=== PATIENT | male | born 1970 | race Caucasian/White ===

== ENCOUNTER 2020-02-26 13:21 | Emergency (ER) | payer SELFPAY ==
[2020-02-26] MEDS ORDERED: KETOROLAC 30 MG/ML INJ ONE (14:30)
[2020-02-26] MEDS ORDERED: NA CHLORIDE 0.9% 1,000 ML ONE (14:31)
[2020-02-26 14:32] LABS: Absolute Lymphocytes (CBC) 2.2 K/uL (0.7-4.9); Basophils % 0.4 % (0-1.3); Hematocrit 44.5 % (39.6-49.0); Lymphocytes % 28.3 % (15.3-44.8); MPV 7.6 fL (7.6-11.3); RBC Red Blood Cell Count 4.73 M/uL (4.33-5.43)
[2020-02-26 14:43] LABS: ALT/SGPT 26 U/L (12-78); AST/SGOT 13 U/L (15-37); Albumin 3.5 g/dL (3.4-5.0); Alkaline Phosphatase 85 U/L (45-117); BUN Blood Urea Nitrogen 10 mg/dL (7-18); Bicarbonate 27 mmol/L (21-32); Bilirubin Direct 0.2 mg/dL (0-0.2); Bilirubin Total 0.8 mg/dL (0.2-1.0); Glucose Level 92 mg/dL (74-106); Lipase 188 U/L (73-393); Potassium 4.2 mmol/L (3.5-5.1); Protein, Total 7.3 g/dL (6.4-8.2); Sodium Level 140 mmol/L (136-145)
--- NOTE | 2020-02-26 15:04 | RAD REPORT ---
EXAM DESCRIPTION: US - Scrotum Testicles - 02/26/2020 2:50 pm CLINICAL HISTORY: right testicle pain COMPARISON: No comparisons FINDINGS: No focal mass lesion identified in either testicle. Blood flow is demonstrated in both salina ticles. Blood flow does appear decreased relative to the left. The left-side is not hyperemic. No epi didymis enlargement or hyperemia identifiable. Increased vascularity is seen in the right groin tissu es without clearly defined varicocele. No hydrocele. No hernia identifiable. IMPRESSION: Normal blood flow seen in the left testicle. Right testicle shows a slightly decreased b lood flow pattern. Arterial and venous flow was demonstrated within the right testicle. No testicular mass. No epididymal mass or hyperemia.
[2020-02-26 15:28] LABS: Urine Mucus 1+ /HPF (NONE SEEN); Urine RBC NONE SEEN /HPF (NONE SEEN)
[2020-02-26 15:29] LABS: Urine Bacteria <20 /HPF (NONE SEEN); Urine Culture Reflex Order NOT NEEDED
[2020-02-26 15:29] LABS: Urine Blood NEGATIVE (NEG); Urine Glucose NEGATIVE (NEG); Urine Protein NEGATIVE (NEG); Urine Specific Gravity 1.025 (1.005-1.030); Urine pH 5.5 (5.0-7.0)
--- NOTE | 2020-02-26 16:14 | RAD REPORT ---
EXAM DESCRIPTION: CT - Abdomen Pelvis W Contrast - 02/26/2020 4:03 pm CLINICAL HISTORY: RLQ abdomen pain COMPARISON: None TECHNIQUE: Biphasic, helical CT imaging of the abdomen and pelvis was performed following 100 ml non -ionic IV contrast. Oral contrast was administered. All CT scans are performed using dose optimization technique as appropriate and may include automated exposure control or mA/KV adjustment according to patient size. FINDINGS: A 5 millimeter noncalcified nodule is present posterior gutter on the left. No specific fo llow-up recommendations for nodule of this size. No pericardial thickening or effusion. The liver, spleen, and pancreas show no suspicious findings. Gallbladder and biliary tree are also wi thout suspicious finding. Symmetric renal function is seen with no hydronephrosis or suspicious renal mass. No pyelonephritis o r acute parenchymal process. No bladder abnormalities. No adrenal abnormalities. No dilated bowel loops or bowel wall thickening. Appendix is identified and normal. Sigmoid colon is redundant and contains moderate stool volume. No free air, free fluid or inflammatory stranding. No mass or bulky lymphadenopathy. Small to moderate right-side and small left-sided inguinal hernias are present. No bowel involvement. Minimal umbilical hernia present. No suspicious bony findings. IMPRESSION: No appendicitis, colitis or other acute GI finding. Patient has no surgically emergent f inding. Bilateral fat only inguinal hernias, right greater than left. No pyelonephritis, cystitis or other acute finding seen.
--- NOTE | 2020-02-26 17:00 | EDPHYS ---
Physician Documentation [facility] Name: Beau Razo Age: 49 yrs Sex: Male : 1970 Arrival Date: 02/26/2020 Time: 13:24 Bed 13 Private MD: ED Physician Lc Walton HPI: 02/25 14:05 This 49 yrs old Male presents to ER via Ambulatory with complaints of cp Abdominal Pain. 14:05 The patient presents with abdominal pain in the lower abdomen. Onset: The cp symptoms/episode began/occurred 2 day(s) ago. 14:05 The symptoms do not radiate. Associated signs and symptoms: Pertinent positives: cp testicular pain, Pertinent negatives: nausea and vomiting, blood in stools, constipation, diarrhea, dysuria, fever, headache, shortness of breath. The symptoms are described as waxing/waning. Modifying factors: the symptoms are aggravated by movement, walking. 14:05 Severity of pain: in the emergency department the pain is unchanged despite home cp interventions. Historical: - Allergies: 13:34 No Known Allergies; em - Home Meds: 13:34 None [Active]; em - PMHx: 13:34 "ruptured disk"; em - PSHx: 13:34 None; em - Immunization history:: Adult Immunizations up to date. - Social history:: Smoking status: Patient reports the use of cigarette tobacco products, smokes one pack cigarettes per day. ROS: 14:15 Constitutional: Negative for body aches, chills, fever, poor PO intake. cp 14:15 Eyes: Negative for injury, pain, redness, and discharge. cp 14:15 ENT: Negative for ear pain, sore throat, difficulty swallowing, difficulty handling secretions. 14:15 Cardiovascular: Negative for chest pain, edema, palpitations. 14:15 Respiratory: Negative for cough, shortness of breath, wheezing. 14:15 Abdomen/GI: Positive for abdominal pain, of the suprapubic area and lower abdomen, Negative for nausea, vomiting, and diarrhea, constipation. 14:15 Back: Negative for radiated pain. 14:15 : Positive for testicular pain Negative for urinary symptoms, penile pain. 14:15 Skin: Negative for cellulitis, rash. 14:15 Neuro: Negative for altered mental status, headache, numbness, weakness. 14:15 All other systems are negative. Exam: 14:20 Constitutional: The patient appears in no acute distress, alert, awake, cp non-diaphoretic, non-toxic, well developed, well nourished. 14:20 Head/Face: Normocephalic, atraumatic. cp 14:20 Eyes: Periorbital structures: appear normal, Conjunctiva: normal, no exudate, no injection, Sclera: no appreciated abnormality, Lids and lashes: appear normal, bilaterally. 14:20 ENT: External ear(s): are unremarkable, Nose: is normal, Mouth: Lips: moist, Oral mucosa: moist, Posterior pharynx: is normal, airway is patent, no erythema, no exudate. 14:20 Chest/axilla: Inspection: normal, Palpation: is normal, no crepitus, no tenderness. 14:20 Cardiovascular: Rate: normal, Rhythm: regular, Edema: is not appreciated, JVD: is not appreciated. 14:20 Respiratory: the patient does not display signs of respiratory distress, Respirations: normal, no use of accessory muscles, no retractions, labored breathing, is not present, Breath sounds: are clear throughout, no decreased breath sounds, no stridor, no wheezing. 14:20 Abdomen/GI: Inspection: abdomen appears normal, Bowel sounds: active, all quadrants, Palpation: soft, in all quadrants, moderate abdominal tenderness, in the suprapubic area and right lower quadrant, rebound tenderness, is not appreciated, voluntary guarding, is elicited in the suprapubic area and right lower quadrant, Hernia: noted in the right inguinal area, incarceration, is not appreciated, tenderness, that is moderate. 14:20 : Male external genitalia: erythema, is absent, penile discharge, is absent, swelling, is noted in the right inguinal area, that is mild, tenderness, of the right testicle is noted, is palpated in the right inguinal area, of the epididymis area, that is moderate, Sexual behavior: the patient is sexually active, and reports a single partner. 14:20 Skin: cellulitis, is not appreciated, no rash present. 14:20 Neuro: Orientation: to person, place \\T\\ time. Mentation: is normal, Motor: moves all fours, strength is normal, Sensation: no obvious gross deficits, Gait: is steady. Vital Signs: 13:31 BP 117 / 89; Pulse 91; Resp 18; Temp 97.7; Pulse Ox 100% on R/A; Weight 68.04 kg; em Height 5 ft. 10 in. (177.80 cm); Pain 4/10; 15:42 BP 122 / 85; Pulse 81; Resp 18; Pulse Ox 98% on R/A; ph 17:00 BP 118 / 76; Pulse 71; Resp 18; Temp 97.4; Pulse Ox 99% on R/A; ph 13:31 Body Mass Index 21.52 (68.04 kg, 177.80 cm) em MDM: 13:43 Patient medically screened. cp 14:00 Differential diagnosis: Testicular Torsion, Ureterolithiasis, urinary tract infection, cp incarcerated hernia, appendicitis. 16:45 ED course: Spoke with DR Webb, urologist with [facility], concerning findings cp of testicular US that showed decreased blood flow to right testicle when compared to left. Believes findings more concerning for epididymitis vs testicular torsion. Wants patient to be treated with oral antibiotics and patient can f/u tomorrow in [facility] with Stephy Coleman. 17:00 Data reviewed: vital signs, nurses notes, lab test result(s), radiologic studies, CT cp scan, ultrasound, I have discussed the patient's presentation/case with the attending Emergency Department Physician; and as a result, I will discharge patient. 17:00 Counseling: I had a detailed discussion with the patient and/or guardian regarding: the cp historical points, exam findings, and any diagnostic results supporting the discharge/admit diagnosis, lab results, radiology results, the need for outpatient follow up, a general surgeon, a urologist, to return to the emergency department if symptoms worsen or persist or if there are any questions or concerns that arise at home. Response to treatment: the patient's symptoms have markedly improved after treatment, Pain improved. Will discharge to home for continued monitoring with instructions for f/u and to return to ED worsening pain/symptoms, and as a result, I will discharge patient. 02/25 13:59 Order name: Basic Metabolic Panel; Complete Time: 15:33 cp 02/25 13:59 Order name: CBC with Diff; Complete Time: 15:33 cp 02/25 13:59 Order name: Hepatic Function; Complete Time: 15:33 cp 02/25 15:34 Interpretation: Normal except: AST 13; GLOB 3.8; A/G 0.9. cp 02/25 13:59 Order name: Lipase; Complete Time: 15:33 cp 02/25 13:59 Order name: Urine Microscopic Only; Complete Time: 15:33 cp 02/25 15:34 Interpretation: Reviewed. 02/25 14:39 Order name: Urine Dipstick--Ancillary (enter results); Complete Time: 15:33 em1 02/25 13:59 Order name: IV Saline Lock; Complete Time: 14:38 cp 02/25 13:59 Order name: Labs collected and sent; Complete Time: 14:38 cp 02/25 13:59 Order name: US Scrotum Testicles; Complete Time: 15:33 cp 02/25 13:59 Order name: CT Abd/Pelvis - PO and IV Contrast; Complete Time: 16:20 cp 02/25 13:59 Order name: Urine Dipstick-Ancillary (obtain specimen); Complete Time: 14:37 cp Administered Medications: 15:15 Drug: TORadol - Ketorolac 15 mg Route: IVP; Site: right antecubital; ph 15:30 Follow up: Response: No adverse reaction ph 15:15 Drug: NS 0.9% 1000 ml Route: IV; Rate: 1 bolus; Site: right antecubital; ph 17:00 Follow up: Response: No adverse reaction; IV Status: Completed infusion; IV Intake: ph 1000ml 17:00 Drug: Hydrocodone-Acetaminophen (7.5 mg-500 mg) 1 tabs Route: PO; ph 17:15 Follow up: Response: No adverse reaction ph 17:00 Drug: Rocephin - (cefTRIAXone) 1 grams Route: IVPB; Infused Over: 30 mins; Site: right ph antecubital; 17:15 Follow up: Response: No adverse reaction; IV Status: Completed infusion ph Disposition: 02/26 05:37 Co-signature as Attending Physician, Lc Walton MD I agree with the assessment and kdr plan of care. Disposition: 02/26/20 17:00 Discharged to Home. Impression: Bilateral inguinal hernia, without obstruction or gangrene, Epididymitis - right. - Condition is Stable. - Discharge Instructions: Epididymitis, Inguinal Hernia, Adult. - Prescriptions for Bactrim DS 800- 160 mg Oral Tablet - take 1 tablet by ORAL route every 12 hours for 10 days; 20 tablet. Tramadol 50 mg Oral Tablet - take 1 tablet by ORAL route every 8 hours as needed; 20 tablet. - Medication Reconciliation Form, Thank You Letter, Antibiotic Education, Prescription Opioid Use form. - Follow up: Private Physician; When: 1-2 days, Stephy Coleman \\T\\[phone]; Reason: Recheck today's complaints. Follow up: Ludwig Lopez MD; When: 2 - 3 days; Reason: inguinal hernias. - Problem is new. - Symptoms have improved. Signatures: Dispatcher [employer] EDMS Lc Walton MD MD kdr Frederick Mcleod RN RN em Smirch, Shelby, RN RN ss Kathy Gutierrez RN RN ph Page, NAPOLEON Underwood cp Corrections: (The following items were deleted from the chart) 02/25 17: 17:00 02/26/2020 17:00 Discharged to Home. Impression: Bilateral inguinal hernia, cp without obstruction or gangrene. Condition is Stable. Forms are Medication Reconciliation Form, Thank You Letter, Antibiotic Education, Prescription Opioid Use. Follow up: Private Physician; When: 1-2 days, Stephy Coleman \\T\\[phone]; Reason: Recheck today's complaints. Problem is new. Symptoms have improved. cp 17:03 17:02/26/2020 17:00 Discharged to Home. Impression: Bilateral inguinal hernia, cp without obstruction or gangrene; Epididymitis - right. Condition is Stable. Discharge Instructions: Epididymitis, Inguinal Hernia, Adult. Prescriptions for Bactrim DS 800-160 mg Oral Tablet - take 1 tablet by ORAL route every 12 hours for 10 days; 20 tablet. and Forms are Medication Reconciliation Form, Thank You Letter, Antibiotic Education, Prescription Opioid Use. Follow up: Private Physician; When: 1-2 days, Stephy Jared \\T\\[phone]; Reason: Recheck today's complaints. Problem is new. Symptoms have improved. cp 17:30 17:03 02/26/2020 17:00 Discharged to Home. Impression: Bilateral inguinal hernia, ss without obstruction or gangrene; Epididymitis - right. Condition is Stable. Discharge Instructions: Epididymitis, Inguinal Hernia, Adult. Prescriptions for Bactrim DS 800-160 mg Oral Tablet - take 1 tablet by ORAL route every 12 hours for 10 days; 20 tablet, Tramadol 50 mg Oral Tablet - take 1 tablet by ORAL route every 8 hours as needed; 20 tablet. and Forms are Medication Reconciliation Form, Thank You Letter, Antibiotic Education, Prescription Opioid Use. Follow up: Private Physician; When: 1-2 days, Stephy Coleman \\T\\[phone]; Reason: Recheck today's complaints. Follow up: Ludwig Lopez; When: 2 - 3 days; Reason: inguinal hernias. Problem is new. Symptoms have improved. cp
--- NOTE | 2020-02-26 17:00 | ER ---
Nurse's Notes [facility] Name: Beau Razo Age: 49 yrs Sex: Male : 1970 Arrival Date: 02/26/2020 Time: 13:24 Bed 13 Private MD: Diagnosis: Bilateral inguinal hernia, without obstruction or gangrene;Epididymitis-right Presentation: 02/25 13:31 Chief complaint: Patient states: suprapubic pain that started 2 days ago, denies N/V/D em or fever, denies burning with urination or discharge. Coronavirus screen: Proceed with normal triage. Patient denies a cough. Patient denies shortness of breath or difficulty breathing. Patient denies measured and/or subjective temperature greater than 100.4F prior to today's visit. Patient denies travel on a cruise ship or to a country the [facility] currently lists as an affected area. Patient denies contact with known and/or suspected case of COVID-19. Ebola Screen: Patient negative for fever greater than or equal to 101.5 degrees Fahrenheit, and additional compatible Ebola Virus Disease symptoms Patient denies exposure to infectious person. Patient denies travel to an Ebola-affected area in the 21 days before illness onset. No symptoms or risks identified at this time. Initial Sepsis Screen: Does the patient meet any 2 criteria? HR > 90 bpm. No. Patient's initial sepsis screen is negative. Does the patient have a suspected source of infection? No. Patient's initial sepsis screen is negative. Risk Assessment: Do you want to hurt yourself or someone else? Patient reports no desire to harm self or others. Onset of symptoms was February 24, 2020. 13:31 Method Of Arrival: Ambulatory em 13:31 Acuity: GAIL 3 em Historical: - Allergies: 13:34 No Known Allergies; em - Home Meds: 13:34 None [Active]; em - PMHx: 13:34 "ruptured disk"; em - PSHx: 13:34 None; em - Immunization history:: Adult Immunizations up to date. - Social history:: Smoking status: Patient reports the use of cigarette tobacco products, smokes one pack cigarettes per day. Screenin:55 Abuse screen: Denies threats or abuse. Denies injuries from another. Nutritional ph screening: No deficits noted. Tuberculosis screening: No symptoms or risk factors identified. Fall Risk None identified. Assessment: 13:39 General: Appears in no apparent distress. comfortable, Behavior is calm, cooperative, ph appropriate for age, Denies fever. Pain: Complains of pain in suprapubic area. 13:54 Neuro: Level of Consciousness is awake, alert, obeys commands, Oriented to person, ph place, time, situation. Cardiovascular: Capillary refill < 3 seconds in bilateral fingers Patient's skin is warm and dry. Respiratory: Airway is patent Respiratory effort is even, unlabored. GI: Abdomen is non-distended, Bowel sounds present X 4 quads. Reports lower abdominal pain, Patient currently denies diarrhea, nausea, vomiting. : Reports pain in suprapubic area Denies burning with urination, urinary frequency. Derm: Skin is intact, is healthy with good turgor, Skin is pink, warm \\T\\ dry. Musculoskeletal: Circulation, motion, and sensation intact. Range of motion: intact in all extremities. 14:20 Reassessment: Patient appears in no apparent distress at this time. Patient and/or ph family updated on plan of care and expected duration. Pain level reassessed. Patient is alert, oriented x 3, equal unlabored respirations, skin warm/dry/pink. Pt completed PO contrast. 15:30 Reassessment: Patient appears in no apparent distress at this time. Patient and/or ph family updated on plan of care and expected duration. Pain level reassessed. Patient is alert, oriented x 3, equal unlabored respirations, skin warm/dry/pink. 16:30 Reassessment: Patient appears in no apparent distress at this time. Patient and/or ph family updated on plan of care and expected duration. Pain level reassessed. Patient is alert, oriented x 3, equal unlabored respirations, skin warm/dry/pink. Vital Signs: 13:31 BP 117 / 89; Pulse 91; Resp 18; Temp 97.7; Pulse Ox 100% on R/A; Weight 68.04 kg; em Height 5 ft. 10 in. (177.80 cm); Pain 4/10; 15:42 BP 122 / 85; Pulse 81; Resp 18; Pulse Ox 98% on R/A; ph 17:00 BP 118 / 76; Pulse 71; Resp 18; Temp 97.4; Pulse Ox 99% on R/A; ph 13:31 Body Mass Index 21.52 (68.04 kg, 177.80 cm) em ED Course: 13:24 Patient arrived in ED. ag5 13:34 Triage completed. em 13:34 Arm band placed on. em 13:38 Kathy Gutierrez, RN is Primary Nurse. ph 13:42 Kj Saleh PA is PHCP. cp 13:42 Lc Walton MD is Attending Physician. cp 13:55 Patient has correct armband on for positive identification. Bed in low position. Call ph light in reach. Side rails up X 1. Pulse ox on. NIBP on. Door closed. Noise minimized. Warm blanket given. 14:25 Initial lab(s) drawn, by me, sent to lab. Inserted saline lock: 20 gauge in right ph antecubital area, using aseptic technique. Blood collected. 14:45 US Scrotum Testicles In Process Unspecified. EDMS 16:04 CT Abd/Pelvis - PO and IV Contrast In Process Unspecified. EDMS 17:02 Ludwig Lopez MD is Referral Physician. cp 17:30 No provider procedures requiring assistance completed. IV discontinued, intact, ph bleeding controlled, No redness/swelling at site. Pressure dressing applied. Administered Medications: 15:15 Drug: TORadol - Ketorolac 15 mg Route: IVP; Site: right antecubital; ph 15:30 Follow up: Response: No adverse reaction ph 15:15 Drug: NS 0.9% 1000 ml Route: IV; Rate: 1 bolus; Site: right antecubital; ph 17:00 Follow up: Response: No adverse reaction; IV Status: Completed infusion; IV Intake: ph 1000ml 17:00 Drug: Hydrocodone-Acetaminophen (7.5 mg-500 mg) 1 tabs Route: PO; ph 17:15 Follow up: Response: No adverse reaction ph 17:00 Drug: Rocephin - (cefTRIAXone) 1 grams Route: IVPB; Infused Over: 30 mins; Site: right ph antecubital; 17:15 Follow up: Response: No adverse reaction; IV Status: Completed infusion ph Intake: 17:00 IV: 1000ml; Total: 1000ml. ph Outcome: 17:00 Discharge ordered by . cp 17:30 Patient left the ED. ss 17:30 Discharged to home ambulatory. ph 17:30 Condition: good 17:30 Discharge instructions given to patient, Instructed on discharge instructions, follow up and referral plans. medication usage, Demonstrated understanding of instructions, follow-up care, medications, Prescriptions given X 2. Signatures: Dispatcher [employer] Frederick Tamez RN RN em Smirch, Shelby, RN RN ss Hall, Patricia, RN RN ph Kj Saleh PA PA cp Gaskin, Ajare ag5 Corrections: (The following items were deleted from the chart) 13:55 13:39 Pain: Complains of pain in suprapubic area ph ph
[2020-02-26] MEDS ORDERED: HYDROCODONE/APAP 7.5/325 MG TAB ONE (17:08)
[2020-02-26] MEDS ORDERED: CEFTRIAXONE/SWI 1gm 1 GM/10 ML SYR ONE (17:08)
[2020-02-26 17:38] VITALS: TEMP 97.7
[2020-02-26 17:40] VITALS: BP 122/85; O2SAT 98
== END 2020-02-26 17:30 | disposition home or self-care (01) ==
LOC: ER 13:21
DX: K40.20 Bilateral inguinal hernia, without obstruction or gangrene, not specified as recurrent (principal); N45.1 Epididymitis; F17.210 Nicotine dependence, cigarettes, uncomplicated
CPT/HCPCS: 36415; 74177; 76870; 80048; 80076; 81003; 81015; 83690; 85025; 96361; 96374; 96375; 99284; J0696; J7030; Q9967

== ENCOUNTER 2024-08-20 14:32 | Emergency (ER) | payer SELFPAY ==
--- OUTSIDE RECORDS SUMMARY | 2024-08-20 14:34 | XMS REPORT | Continuity of Care Document ---
Author Name Unknown Address [address] [place] [address] [address]. [address] [place] [id number] [facility] thconnect Address [address] [place] [address] [address]. [address] [place] [address] Care Team Providers Care Technician Terminal And Repeater Name Role Phone Unavailable Unavailable Unavailable Encounters Start Date/Time End Date/Time Encounter Type Admission Type Attending Clinicians [facility] Facility Care Department Encounter ID Source 2023-02-09 11:02:34 2023-02-09 11:02:[address] [facility] [id number] Chris Melo 2023-01-09 14:23:55 2023-01-09 14:23:[address] [facility] [id number] Chris Melo Results Test Description Test Time Test Comments Results Result Co mments Source
--- NOTE | 2024-08-20 15:11 | ER ---
Nurse's Notes [facility] Name: Beau Razo Age: 53 yrs Sex: Male : 1970 Arrival Date: 08/20/2024 Time: 14:32 Bed IW3 [facility] MD: Diagnosis: Polyarthritis, unspecified Presentation: 08/20 15:03 Chief complaint: Pain all over, worse in the hands x 5 days. Coronavirus screen: At this time, the client does not indicate any symptoms associated with coronavirus-19. Ebola Screen: No symptoms or risks identified at this time. Initial Sepsis Screen: Does the patient meet any 2 criteria? No. Patient's initial sepsis screen is negative. Does the patient have a suspected source of infection? No. Patient's initial sepsis screen is negative. Risk Assessment: Do you want to hurt yourself or someone else? Patient reports no desire to harm self or others. Onset of symptoms was August 14, 2024. 15:03 Method Of Arrival: Ambulatory hb 15:05 Acuity: GAIL 4 hb Historical: - Allergies: 15:04 No Known Allergies; hb - Home Meds: 15:04 None [Active]; hb - PMHx: 15:04 None; hb - PSHx: 15:04 None; hb - Immunization history:: Adult Immunizations up to date. - Infectious Disease History:: Denies. - Social history:: Smoking status: Patient reports the use of cigarette tobacco products. Vital Signs: 15:05 BP 112 / 73; Pulse 77; Resp 16; Temp 97; Pulse Ox 100% ; hb ED Course: 14:34 Patient arrived in ED. im 14:34 Bria Tena PA-C is PHCP. sb4 14:35 Kj Mckeon MD is Attending Physician. sb4 15:05 Arm band placed on. hb 15:08 Triage completed. hb Administered Medications: 16:17 Drug: Ketorolac IM 30 mg IM once Route: IM; Site: right deltoid; hb 16:18 Follow up: Response: Medication administered at discharge. hb 16:17 Drug: Dexamethasone IM 10 mg IM once Route: IM; Site: left deltoid; hb 16:17 Follow up: Response: Medication administered at discharge. hb 16:17 Drug: Cyclobenzaprine PO 10 mg PO once Route: PO; hb 16:18 Follow up: Response: Medication administered at discharge. hb Outcome: 15:10 Discharge ordered by MD. mary 16:18 Patient left the ED. hb Signatures: Marlena Mendoza RN RN Bria De PA-C PA-C sb4 Mendoza, Itzel Corrections: (The following items were deleted from the chart) 15:04 15:02 Chief complaint: hb hb 15:08 15:03 Chief complaint: Bilateral hand pain x 2 days. hb hb 15:08 15:03 Onset of symptoms was August 19, 2024 hb hb
--- NOTE | 2024-08-20 15:11 | EDPHYS ---
Physician Documentation [facility] Name: Beau Razo Age: 53 yrs Sex: Male : 1970 Arrival Date: 08/20/2024 Time: 14:32 Bed IW3 Private MD: ED Physician Kj Mckeon HPI: 08/20 15:12 This 53 yrs old Male presents to ER via Ambulatory with complaints of Pain All Over. sb4 15:12 joint pain x several days- bilateral wrists, hips, and knees. has taken ibuprofen sb4 without significant relief. denies any injury. denies any medical history. Historical: - Allergies: 15:04 No Known Allergies; hb - Home Meds: 15:04 None [Active]; hb - PMHx: 15:04 None; hb - PSHx: 15:04 None; hb - Immunization history:: Adult Immunizations up to date. - Infectious Disease History:: Denies. - Social history:: Smoking status: Patient reports the use of cigarette tobacco products. ROS: 15:12 Constitutional: Negative for fever, chills, and weight loss, sb4 15:12 MS/extremity: Positive for decreased range of motion, pain, tenderness, 15:12 All other systems are negative, Exam: 15:12 Constitutional: This is a well developed, well nourished patient who is awake, alert, sb4 and in no acute distress. Head/Face: Normocephalic, atraumatic. Eyes: Extra-ocular motions intact. Periorbital areas with no swelling, redness, or edema. ENT: Mucous membranes moist. 15:12 Skin: Warm, dry with normal turgor. Normal color with no rashes, no lesions, and no evidence of cellulitis. 15:12 Musculoskeletal/extremity: decreased strength right hand. no swelling, erythema, decreased ROM. 15:16 Special observations: sleeping in lobby, sb4 Vital Signs: 15:05 BP 112 / 73; Pulse 77; Resp 16; Temp 97; Pulse Ox 100% ; hb MDM: 15:10 Medical Screening Exam initiated sb4 15:16 Data reviewed: vital signs, nurses notes, and as a result, I will discharge patient. sb4 Counseling: I had a detailed discussion with the patient and/or guardian regarding the historical points, exam findings, and any diagnostic results supporting the discharge/admit diagnosis, the need for outpatient follow up, for definitive care, to return to the emergency department if symptoms worsen or persist or if there are any questions or concerns that arise at home. Administered Medications: 16:17 Drug: Ketorolac IM 30 mg IM once Route: IM; Site: right deltoid; hb 16:18 Follow up: Response: Medication administered at discharge. hb 16:17 Drug: Dexamethasone IM 10 mg IM once Route: IM; Site: left deltoid; hb 16:17 Follow up: Response: Medication administered at discharge. hb 16:17 Drug: Cyclobenzaprine PO 10 mg PO once Route: PO; hb 16:18 Follow up: Response: Medication administered at discharge. hb Disposition Summary: 08/20/24 15:10 Discharge Ordered Notes: Location: Home sb4 Problem: an ongoing problem sb4 Symptoms: have improved sb4 Condition: Stable sb4 Diagnosis - Polyarthritis, unspecified sb4 Followup: sb4 - With: Private Physician - When: As needed - Reason: Recheck today's complaints, Re-evaluation by your physician Discharge Instructions: - Discharge Summary Sheet sb4 - Arthritis, [id number] sb4 - Joint Pain, Bjhk-by-[id number] sb4 Forms: - Patient Portal Instructions sb4 - Leadership Thank You Letter sb4 Prescriptions: - Cyclobenzaprine 10 mg Oral Tablet - take 1 tablet ORAL route every 8 hours As needed; 30 tablet; Refills: 0, sb4 Product Selection Permitted - Prednisone 20 mg Oral Tablet - take 2 tablets ORAL route once daily for 5 days; 10 tablet; Refills: 0, Product sb4 Selection Permitted Addendum: 08/22/2024 12:40 Co-signature as Attending Physician, Kj Mckeon MD I agree with the assessment and c fowler plan of care. Signatures: Kj Mckeon MD MD cha Baxter, Heather, RN RN Bria De PA-C PA-C sb4
[2024-08-20] MEDS ORDERED: dexAMETHasone 10 MG/ML VIAL ONE (16:11)
[2024-08-20] MEDS ORDERED: KETOROLAC 30 MG/ML INJ ONE (16:11)
[2024-08-20] MEDS ORDERED: CYCLOBENZAPRINE 10 MG TAB ONE (16:12)
[2024-08-20 17:20] VITALS: BP 112/73; TEMP 97; O2SAT 100
== END 2024-08-20 16:18 | disposition home or self-care (01) ==
LOC: ER 14:32
DX: M13.0 Polyarthritis, unspecified (principal); F17.210 Nicotine dependence, cigarettes, uncomplicated
CPT/HCPCS: 96372; 99284; J1100

== ENCOUNTER 2024-11-06 09:30 | Emergency (ER) | payer OTHER ==
--- OUTSIDE RECORDS SUMMARY | 2024-11-06 09:32 | XMS REPORT | Continuity of Care Document ---
Author Name Unknown Address [address] [place] [address] [facility] Address [address] [place] [address] Care Team Providers Care Intermediate Project Manager Name Role Phone Unavailable Unavailable Unavailable Encounters Start Date/Time End Date/Time Encounter Type Admission Type Attending Clinicians [facility] Facility Care Department Encounter ID Source 2024-10-31 13:25:57 2024-10-31 13:25:57 Outpatient SFA SFA [id number] Chris Melo 2024-10-28 10:42:47 2024-10-28 10:42:47 Outpatient SFA SFA [id number] Chris Melo 2023-02-09 11:02:34 2023-02-09 11:02:34 Outpatient SFA SFA [id number] Chris Melo 2023-01-09 14:23:55 2023-01-09 14:23:55 Outpatient SFA SFA [id number] Chris Melo
[2024-11-06] MEDS ORDERED: MORPHINE 4 MG/ML SYR ONE (09:46)
[2024-11-06] MEDS ORDERED: NA CHLORIDE 0.9% 1,000 ML ONE (09:46)
[2024-11-06] MEDS ORDERED: ONDANSETRON 4 MG/2 ML VIAL ONE (09:46)
[2024-11-06] MEDS ORDERED: KETOROLAC 30 MG/ML INJ ONE (09:46)
[2024-11-06 10:14] LABS: Absolute Basophils 0.1 K/uL (0-0.5); Absolute Eosinophils 0.1 K/uL (0-0.5); Absolute Lymphocytes (CBC) 1.1 K/uL (0.7-4.9); Absolute Monocytes 0.5 K/uL (0.1-1.3); Absolute Neutrophil 15.6 K/uL (1.8-8.0); Basophils % 0.5 % (0-1.3); Eosinophils % 0.6 % (0-4.4); Hematocrit 36.3 % (39.6-49.0); Lymphocytes % 6.5 % (15.3-44.8); MCH 28.4 pg (27.0-35.0); MCHC 32.9 g/dL (32.0-36.0); MCV 86.1 fL (80-100); MPV 6.1 fL (7.6-11.3); Neutrophils % 89.4 % (41.7-73.7); Platelets 681 thou/uL (152-406); RBC Red Blood Cell Count 4.22 M/uL (4.33-5.43); Red Cell Distribution Width 14.8 % (12.1-15.2)
[2024-11-06 10:29] LABS: Albumin 1.9 g/dL (3.4-5.0); Albumin/Globulin Ratio 0.4 (1.1-1.8); Anion Gap 9.1 mEq/L (5.0-15.0); Bilirubin Total 0.3 mg/dL (0.2-1.0); Globulin 5.2 g/dL (2.3-3.5); Potassium 4.1 mEq/L (3.5-5.1); Protein, Total 7.1 g/dL (6.4-8.2)
[2024-11-06 10:38] LABS: Specific Gravity > 1.030 (1.005-1.030); Sqamous Epithelial None Seen /HPF (None Seen); Urine Bacteria <20 /HPF (<20); Urine Bilirubin NEGATIVE (Negative); Urine Blood Negative (Negative); Urine Clarity Clear (Clear); Urine Color Yellow (Yellow); Urine Culture Reflex Order NOT NEEDED; Urine Glucose NEGATIVE (Negative); Urine Ketones NEGATIVE (Negative); Urine Microscopic Reflex YN ORDER UMIC; Urine Mucus Slight /HPF (None Seen); Urine Nitrite NEGATIVE (Negative); Urine Protein TRACE (Negative); Urine RBC <5 /HPF (None Seen); Urine Urobilinogen 1+ (Normal); Urine WBC <5 /HPF (<5); Urine pH 5.5 (5.0-7.0)
[2024-11-06 10:48] LABS: Band Neutrophils 1 % (0-1); Differential Total Cells Count 100; Lymphocytes 10 % (15-42); Metamyelocytes 1 % (0-0); Monocytes 4 % (0-10); Segmented Neutrophils 84 % (40-80)
[2024-11-06 10:49] LABS: Blood Morphology Comment NOTED (NOT SEEN); Platelet Estimate INCR; Spherocyte 1+
--- NOTE | 2024-11-06 11:24 | RAD REPORT ---
EXAM: CT CHEST, ABDOMEN AND PELVIS WITH CONTRAST CLINICAL INDICATION: rlq TECHNIQUE: CT chest, abdomen and pelvis was performed, following the administration of contrast, as p er department protocol. Axial, sagittal and coronal reconstructions were obtained. One or more of the following dose reduction techniques were used: Automated exposure control, adjustment of the mA a nd/or kV according to patient size, and/or iterative reconstruction. Unless otherwise specified, incidental findings do not require dedicated imaging follow-up. COMPARISON: No prior exam. FINDINGS: LUNGS: There is a large mass lesion occupying the majority of the superior right hemithorax this hailey ures 16 x 15 x 13 cm. There is mild mass effect on the cardiomediastinal structures towards the left. Left lung is grossly clear. PLEURA: Trace right pleural fluid. MEDIASTINUM AND LYMPH NODES: There is evidence of enlarged mediastinal adenopathy, for example pretra cheal location measuring 15 mm. OSSEOUS STRUCTURES AND CHEST WALL: There are multiple lucent lesions seen in the axial skeleton, bony pelvis and sternum compatible with osseous metastatic disease. LIVER: Tiny indeterminate low-density hepatic lesions. No biliary dilatation. Grossly unremarkable ga llbladder. PANCREAS: No mass, ductal dilation, or kelly-pancreatic fluid. SPLEEN: Normal size. No focal lesion. ADRENALS: Normal; no mass. KIDNEYS: Normal size and contour. No hydronephrosis. URINARY BLADDER: Normal contour. GASTROINTESTINAL TRACT: No bowel obstruction, free air, significant free fluid or abscess. APPENDIX: Normal appendix. LYMPH NODES: No lymphadenopathy. MUSCULOSKELETAL: Mild central T12 compression fracture with mild vertebral body height loss likely pa thologic fracture. There is severe central canal stenosis at this level caused by posterior retropulsion and mass component. Mild paraspinal soft tissue thickening. IMPRESSION: Very large mass occupying the majority of the right upper hemithorax compatible with neoplasm as deta iled above. 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 C ord compression is suspected. The findings were communicated with Jonathan Aguayo at 11/06/2024 11:22 AM by telephone.
[2024-11-06] MEDS ORDERED: Levofloxacin 750mg IV 750 MG/150 ML BAG IV ONE (12:31)
--- NOTE | 2024-11-06 13:01 | EDPHYS ---
Physician Documentation [facility] Name: Beau Razo Age: 54 yrs Sex: Male : 1970 Arrival Date: 11/06/2024 Time: 09:30 Bed 2 Private MD: ED Physician Jonathan Aguayo HPI: 11/06 10:06 This 54 yrs old Male presents to ER via Ambulatory with complaints of Possible Kidney rt Stone. 10:06 Patient presents to the ED with a right lower quadrant pain radiating to the right rt flank, intermittently past 8 days. Reports nausea without vomiting. Denies dysuria, hematuria. Denies other acute complaints at this time, symptoms are moderate in severity, no other aggravating or alleviating factors.. Historical: - Allergies: :40 No Known Allergies; ll1 - PMHx: 09:40 Kidney stone; ll1 - PSHx: 09:40 None; ll1 - Immunization history:: Adult Immunizations up to date. - Infectious Disease History:: Denies. - Family history:: not pertinent. - Social history:: Smoking status: Patient denies any tobacco usage or history of. ROS: 10:06 Constitutional: Negative for fever, chills, and weight loss, Cardiovascular: Negative rt for chest pain, palpitations, and edema, Respiratory: Negative for shortness of breath, cough, wheezing, and pleuritic chest pain, MS/Extremity: Negative for injury and deformity, Skin: Negative for injury, rash, and discoloration, Neuro: Negative for headache, weakness, numbness, tingling, and seizure, 10:06 Abdomen/GI: Positive for abdominal pain, nausea, 10:06 Back: Positive for flank pain, Negative for injury or acute deformity, Exam: 10:06 Constitutional: This is a well developed, well nourished patient who is awake, alert, rt and in no acute distress. Head/Face: Normocephalic, atraumatic. Chest/axilla: Normal chest wall appearance and motion. Nontender with no deformity. No lesions are appreciated. Cardiovascular: Regular rate and rhythm with a normal S1 and S2. No gallops, murmurs, or rubs. Normal PMI, no JVD. No pulse deficits. Respiratory: Lungs have equal breath sounds bilaterally, clear to auscultation and percussion. No rales, rhonchi or wheezes noted. No increased work of breathing, no retractions or nasal flaring. Skin: Warm, dry with normal turgor. Normal color with no rashes, no lesions, and no evidence of cellulitis. MS/ Extremity: Pulses equal, no cyanosis. Neurovascular intact. Full, normal range of motion. 10:06 Abdomen/GI: Tenderness to the right lower quadrant, right flank without rebound, guarding, distention, Vital Signs: 09:41 BP 124 / 76; Pulse 94; Resp 17; Temp 97.7; Pulse Ox 99% on R/A; ll1 10:04 BP 107 / 68; Pulse 83; Resp 18; Pulse Ox 100% on R/A; Pain 8/10; ld1 10:53 BP 112 / 74; Pulse 77; Resp 18; Pulse Ox 98% on R/A; ld1 12:06 BP 104 / 65; Pulse 85; Resp 18; Pulse Ox 100% on R/A; ld1 13:06 BP 114 / 74; Pulse 81; Resp 18; Pulse Ox 100% on R/A; ld1 13:45 BP 113 / 70; Pulse 79; Resp 15; Pulse Ox 100% ; cm10 10:04 Pain Scale: Adult ld1 MDM: 09:36 Medical Screening Exam initiated rt 15:26 Differential Diagnosis Kidney stone, appendicitis, metastatic cancer. Data reviewed: rt vital signs, nurses notes, lab test result(s), EKG, radiologic studies. Consideration of Admission/Observation Escalation of care including admission/observation considered. Given large new lung mass with compression of the mediastinum, T12 compression fracture with retropulsion into the spinal cord, I strongly recommended that the patient be transferred to [facility] for further care. Patient states that he does not wish to go up there today, wishes to go tomorrow. I told him that this would be outside of the transfer process and that I recommended that we send him today. Patient refuses transfer at this time. I informed him of the risk of permanent neurologic disability to include paralysis. He understands his condition, verbalized understanding and has decision-making capacity. Return precautions were discussed.. I considered the following discharge prescriptions or medication management in the emergency department Medications were administered in the Emergency Department. See MAR. Independent interpretation of the following test(s) in the Emergency Department CT Scan: My interpretation is Large lung mass seen on my interpretation of CT scan images. Discussion of test interpretation with radiology: I had a discussion with radiology regarding a test interpretation. Discussed compression fracture with radiologist. Counseling: I had a detailed discussion with the patient and/or guardian regarding the historical points, exam findings, and any diagnostic results supporting the discharge/admit diagnosis, lab results, radiology results, the need to transfer to another facility. Refusal of service: The patient/guardian displays adequate decision making capability and despite a detailed discussion of alternatives, benefits, risks, and consequences refuses: Admission to the hospital for further work-up and treatment. 11/06 09:45 Order name: CBC with Diff; Complete Time: 10:52 rt 11/06 09:45 Order name: CMP; Complete Time: 10:44 rt 11/06 09:45 Order name: Lipase; Complete Time: 10:44 rt 11/06 09:45 Order name: Urinalysis w/ reflexes; Complete Time: 10:44 rt 11/06 10:18 Order name: Manual Differential; Complete Time: 10:52 EDMS 11/06 11:06 Order name: Chest Abdomen Pelvis W Cont; Complete Time: 11:30 EDMS 12 09:45 Order name: IV Saline Lock; Complete Time: 10:04 rt 11/06 09:45 Order name: Labs collected and sent; Complete Time: 10:04 rt Administered Medications: 10:04 Drug: TORadol - Ketorolac IVP 15 mg IVP once Route: IVP; Site: right forearm; ld1 10:45 Follow up: Response: No adverse reaction cm10 10:04 Drug: Ondansetron IVP 4 mg IVP once; over 2 minutes Route: IVP; Site: right forearm; ld1 10:45 Follow up: Response: No adverse reaction cm10 10:04 Drug: morphine IVP or IV 4 mg IVP once over 4 mins Route: IVP; Infused Over: 4 mins; ld1 Site: right forearm; 10:45 Follow up: Response: No adverse reaction cm10 10:04 Drug: NS 0.9% IV 1000 ml IV at 1 bolus Per protocol; to be given as a bolus over 60 ld1 minutes Route: IV; Rate: 1 bolus; Site: right forearm; 11:04 Follow up: Response: No adverse reaction; IV Status: Completed infusion; IV Intake: cm10 1000ml 12:35 Drug: LevaQUIN IVPB 750 mg IVPB once Route: IVPB; Site: right forearm; ld1 13:55 Follow up: Response: No adverse reaction; IV Status: Completed infusion; IV Intake: cm10 150ml Disposition Summary: 11/06/24 13:01 Discharge Ordered Notes: Location: Home rt Problem: new rt Symptoms: are unchanged rt Condition: Serious rt Diagnosis - Lung mass rt - Pathologic fracture of T12 with retropulsion and spinal cord compression rt - Leukocytosis rt Followup: rt - With: Private Physician - When: 1 - 2 days - Reason: Discharge Instructions: - Discharge Summary Sheet rt - Spinal Compression Fracture rt - Lung Mass rt Forms: - Medication Reconciliation Form rt - Antibiotic Education rt - Prescription Opioid Use rt - Patient Portal Instructions rt - Leadership Thank You Letter rt Prescriptions: - levofloxacin 500 mg Oral tablet - take 1 tablet ORAL route once daily for 7 days; 7 tablet; Refills: 0, Product rt Selection Permitted - Tylenol-Codeine #3 300mg-30mg Oral tablet - take 1 tablet ORAL route every 4 hours As needed; 12 tablet; Refills: 0, rt Product Selection Permitted Signatures: Dispatcher [employer] EDAlejandra Kelley RN RN ll1 Shayy Randolph RN RN ld1 Jonathan Aguayo MD MD rt Eunice Dimas RN cm10 Corrections: (The following items were deleted from the chart) 09:45 09:45 CBC+H.LAB.BRZ ordered. EDMS EDMS 09:45 09:45 COMPREHENSIVE METABOLIC PANEL+C.LAB.BRZ ordered. EDMS EDMS 09:45 09:45 LIPASE+C.LAB.BRZ ordered. EDMS EDMS 09:45 09:45 Urinalysis+U.LAB.BRZ ordered. EDMS EDMS 09:45 09:45 Abdomen Pelvis W Con+CT.RAD.BRZ ordered. EDMS EDMS
--- NOTE | 2024-11-06 13:01 | ER ---
Nurse's Notes [facility] Name: Beau Razo Age: 54 yrs Sex: Male : 1970 Arrival Date: 11/06/2024 Time: 09:30 Bed 2 Private MD: Diagnosis: Lung mass;Pathologic fracture of T12 with retropulsion and spinal cord compression;Leukocytosis Presentation: 11/06 09:41 Chief complaint: Patient states: R side flank pain, abdominal pain, urine dark in color ll1 off/on for 6 days. Coronavirus screen: Client denies travel out of the [place] in the last 14 days. At this time, the client does not indicate any symptoms associated with coronavirus-19. Ebola Screen: Patient denies travel to an Ebola-affected area in the 21 days before illness onset. Initial Sepsis Screen: Does the patient meet any 2 criteria? No. Patient's initial sepsis screen is negative. Does the patient have a suspected source of infection? No. Patient's initial sepsis screen is negative. Risk Assessment: Do you want to hurt yourself or someone else? Patient reports no desire to harm self or others. Onset of symptoms was October 31, 2024. 09:41 Method Of Arrival: Ambulatory ll1 09:41 Acuity: GAIL 3 ll1 Triage Assessment: 09:38 General: Appears uncomfortable, Behavior is calm, cooperative, appropriate for age. ll1 Pain: Complains of pain in R flank Quality of pain is described as aching, crampy. GI: Reports lower abdominal pain. : Reports pain in right flank(s), urine dark in color at times. Historical: - Allergies: 09:40 No Known Allergies; ll1 - PMHx: 09:40 Kidney stone; ll1 - PSHx: 09:40 None; ll1 - Immunization history:: Adult Immunizations up to date. - Infectious Disease History:: Denies. - Family history:: not pertinent. - Social history:: Smoking status: Patient denies any tobacco usage or history of. Screenin:04 [facility] ED Fall Risk Assessment (Adult) History of falling in the last 3 months, ld1 including since admission No falls in past 3 months (0 pts) Confusion or Disorientation No (0 pts) Intoxicated or Sedated No (0 pts) Impaired Gait No (0 pts) Mobility Assist Device Used No (0 pt) Altered Elimination No (0 pt) Score/Fall Risk Level 0 - 2 = Low Risk Oriented to surroundings, Hourly rounding (assess needs \T\ fall precautionary measures) done. Abuse screen: Denies threats or abuse. Denies injuries from another. Nutritional screening: No deficits noted. Tuberculosis screening: No symptoms or risk factors identified. Assessment: 10:04 General: Appears in no apparent distress. uncomfortable, Behavior is calm, cooperative, ld1 appropriate for age. Pain: Complains of pain in low back area Pain currently is 8 out of 10 on a pain scale. Quality of pain is described as sharp, throbbing, Pain began suddenly, Is continuous. Neuro: Level of Consciousness is awake, alert, obeys commands, Oriented to person, place, time, situation, Appropriate for age. Cardiovascular: Capillary refill < 3 seconds Patient's skin is warm and dry. Respiratory: Airway is patent Respiratory effort is even, unlabored. GI: Abdomen is round non-distended, Bowel sounds present X 4 quads. Abd is soft Abd is non tender Reports nausea. : Reports pain in bilateral flank(s). EENT: No signs and/or symptoms were reported regarding the EENT system. Derm: No signs and/or symptoms reported regarding the dermatologic system. Musculoskeletal: No signs and/or symptoms reported regarding the musculoskeletal system. 12:06 Reassessment: Patient appears in no apparent distress at this time. No changes from ld1 previously documented assessment. Patient and/or family updated on plan of care and expected duration. Pain level reassessed. Patient is alert, oriented x 3, equal unlabored respirations, skin warm/dry/pink. 12:08 Reassessment: Faxed pharmacy for Levaquin order. Pyxis does not have medication at this ld1 time. 13:06 Reassessment: Discharge pending IV antibiotic completion. ld1 Vital Signs: 09:41 BP 124 / 76; Pulse 94; Resp 17; Temp 97.7; Pulse Ox 99% on R/A; ll1 10:04 BP 107 / 68; Pulse 83; Resp 18; Pulse Ox 100% on R/A; Pain 8/10; ld1 10:53 BP 112 / 74; Pulse 77; Resp 18; Pulse Ox 98% on R/A; ld1 12:06 BP 104 / 65; Pulse 85; Resp 18; Pulse Ox 100% on R/A; ld1 13:06 BP 114 / 74; Pulse 81; Resp 18; Pulse Ox 100% on R/A; ld1 13:45 BP 113 / 70; Pulse 79; Resp 15; Pulse Ox 100% ; cm10 10:04 Pain Scale: Adult ld1 ED Course: 09:33 Patient arrived in ED. im 09:33 Jonathan Aguayo MD is Attending Physician. rt 09:39 Arm band placed on Patient placed in an exam room, on a stretcher. ll1 09:42 Triage completed. ll1 10:03 Shayy Randolph, SAEID is Primary Nurse. ld1 10:04 Patient has correct armband on for positive identification. Placed in gown. Bed in low ld1 position. Call light in reach. Side rails up X2. conveyor monitor on. Pulse ox on. NIBP on. Door closed. Noise minimized. Warm blanket given. 10:04 No provider procedures requiring assistance completed. Inserted saline lock: 22 gauge ld1 in right forearm, using aseptic technique. Blood collected. Flushed with 10 mL NS. 11:11 Chest Abdomen Pelvis W Cont In Process Unspecified. EDMS 13:55 Provided Education on: Follow-up instructions. cm10 13:55 IV discontinued, intact, bleeding controlled, No redness/swelling at site. Pressure cm10 dressing applied. Administered Medications: 10:04 Drug: TORadol - Ketorolac IVP 15 mg IVP once Route: IVP; Site: right forearm; ld1 10:45 Follow up: Response: No adverse reaction cm10 10:04 Drug: Ondansetron IVP 4 mg IVP once; over 2 minutes Route: IVP; Site: right forearm; ld1 10:45 Follow up: Response: No adverse reaction cm10 10:04 Drug: morphine IVP or IV 4 mg IVP once over 4 mins Route: IVP; Infused Over: 4 mins; ld1 Site: right forearm; 10:45 Follow up: Response: No adverse reaction cm10 10:04 Drug: NS 0.9% IV 1000 ml IV at 1 bolus Per protocol; to be given as a bolus over 60 ld1 minutes Route: IV; Rate: 1 bolus; Site: right forearm; 11:04 Follow up: Response: No adverse reaction; IV Status: Completed infusion; IV Intake: cm10 1000ml 12:35 Drug: LevaQUIN IVPB 750 mg IVPB once Route: IVPB; Site: right forearm; ld1 13:55 Follow up: Response: No adverse reaction; IV Status: Completed infusion; IV Intake: cm10 150ml Medication: 10:04 VIS not applicable for this client. ld1 Intake: 11:04 IV: 1000ml; Total: 1000ml. cm10 13:55 IV: 150ml; Total: 1150ml. cm10 Outcome: 13:01 Discharge ordered by . rt 13:57 Discharged to home ambulatory, cm10 13:57 Condition: good 13:57 Discharge instructions given to patient, Instructed on discharge instructions, follow up and referral plans. medication usage, Demonstrated understanding of instructions, follow-up care, medications, Prescriptions given X 2, 13:57 Patient left the ED. cm10 Signatures: Dispatcher [employer] Alejandra Marquez RN RN 1 Shayy Randolph RN RN ld1 Jonathan Aguayo MD MD rt Mendoza, Itzel im Martinez, Clarissa, RN RN cm10
[2024-11-06 14:13] VITALS: TEMP 97.7
[2024-11-06 14:16] VITALS: O2SAT 100
[2024-11-06 14:19] VITALS: BP 113/70
== END 2024-11-06 13:57 | disposition home or self-care (01) ==
LOC: ER 09:30
DX: M84.48XA Pathological fracture, other site, initial encounter for fracture (principal); R91.8 Other nonspecific abnormal finding of lung field; D72.829 Elevated white blood cell count, unspecified
CPT/HCPCS: 85025; 81001; 36415; 83690; 80053; 71260; 74177; Q9967; J2405; J7030; 96361; 96365; 96375; 99285

== ENCOUNTER 2024-12-10 12:19 | Inpatient (IN) | payer OTHER ==
[2024-12-10 13:25] LABS: Absolute Eosinophils 0.1 K/uL (0-0.5); Absolute Lymphocytes (CBC) 1.3 K/uL (0.7-4.9); Absolute Monocytes 0.3 K/uL (0.1-1.3); Absolute Neutrophil 6.2 K/uL (1.8-8.0); Basophils % 0.6 % (0-1.3); Eosinophils % 0.9 % (0-4.4); Hematocrit 23.8 % (39.6-49.0); Hemoglobin 8.2 g/dL (13.6-17.9); MCH 29.5 pg (27.0-35.0); MCHC 34.3 g/dL (32.0-36.0); MCV 85.9 fL (80-100); MPV 6.3 fL (7.6-11.3); Monocytes % 4.2 % (3.3-12.3); Neutrophils % 78.3 % (41.7-73.7); Nucleated RBC Absolute Count 0.1 (0-0); Nucleated Red Blood Cells % 0.7 % (0-0); Platelets 403 thou/uL (152-406); RBC Red Blood Cell Count 2.77 M/uL (4.33-5.43); Red Cell Distribution Width 17.8 % (12.1-15.2)
[2024-12-10 13:50] LABS: ALT/SGPT 82 U/L (16-61); AST/SGOT 63 U/L (15-37); Albumin 1.9 g/dL (3.4-5.0); Albumin/Globulin Ratio 0.4 (1.1-1.8); Alkaline Phosphatase 248 U/L (45-117); Anion Gap 11.8 mEq/L (5.0-15.0); BUN Blood Urea Nitrogen 9 mg/dL (7-18); Bicarbonate 24 mEq/L (21-32); Bilirubin Total 0.5 mg/dL (0.2-1.0); Globulin 4.3 g/dL (2.3-3.5); Glomerular Filtration Rate 110 ml/min (=/>90); Glucose Level 111 mg/dL (74-106); NT PRO-BNP 421 pg/mL (<125); Potassium 3.8 mEq/L (3.5-5.1); Protein, Total 6.2 g/dL (6.4-8.2); Sodium Level 134 mEq/L (136-145); Troponin High Sensitivity 5.3 pg/mL (<58.9)
[2024-12-10 13:51] LABS: Bilirubin Direct < 0.2 mg/dL (0-0.2); Bilirubin Indirect, Calculated 0.3 mg/dL (0.2-0.8)
[2024-12-10] MEDS ORDERED: ONDANSETRON 4 MG/2 ML VIAL ONE (14:02)
[2024-12-10] MEDS ORDERED: METHYLPREDNISOLONE 125 MG INJ ONE (14:02)
[2024-12-10] MEDS ORDERED: ALBUTEROL 2.5 MG/3 ML NEB SOL ONE ×2 (14:02→21:11)
[2024-12-10] MEDS ORDERED: IPRATROPIUM BROM 0.5MG/2.5ML ONE ×2 (14:02→21:11)
[2024-12-10] MEDS ORDERED: MORPHINE 4 MG/ML SYR ONE (14:03)
--- NOTE | 2024-12-10 14:51 | RAD REPORT ---
EXAMINATION: CTA CHEST PE CLINICAL INDICATION: dyspnea, cancer TECHNIQUE: This examination was performed according to an angiographic protocol with 3D post-processi ng. This involves 3D reconstructions, MIPs, volume rendered images and/or shaded surface rendering. One or more of the following dose reduction techniques were used: Automated exposure control, adjustm ent of the mA and/or kV according to patient size, and/or iterative reconstruction. Unless otherwise specified, incidental findings do not require dedicated imaging follow-up. COMPARISON: 11/06/2024 FINDINGS: PULMONARY ARTERIES: Normal caliber. No evidence of pulmonary emboli to the subsegmental level. THORACIC AORTA: Normal caliber and configuration. LUNGS: Large mass lesion again noted in the right lung with mass effect on the cardiomediastinal stru ctures to the left. Areas of airspace consolidation in the right lower lung as well as the left upper lobe and left lower lobe noted. PLEURA: Moderate right pleural effusion is noted with inferior pleural nodularity likely metastatic e ffusion. MEDIASTINUM AND LYMPH NODES: Enlarged lymph nodes are seen, right axillary region measuring 23 mm, pr etracheal space measuring 22 mm, AP window and subcarinal locations. OSSEOUS STRUCTURES AND CHEST WALL: Bony metastatic disease seen throughout the visualized thoracic sp ine. Previously noted T12 fracture has undergone vertebroplasty procedure. UPPER ABDOMEN: Small indeterminate hepatic lesions are present. IMPRESSION: No evidence of pulmonary emboli to the subsegmental level. There is moderate mass effect/shift of t he cardiomediastinal structures to the left. Significant worsening intrathoracic malignant process since the comparison study as detailed. Areas of lung consolidation may represent pneumonia.
[2024-12-10 15:36] LABS: White Blood Cell Scan OK (OK)
[2024-12-10 15:37] LABS: Blood Morphology Comment NOT SEEN (NOT SEEN); Platelet Estimate INCR
--- NOTE | 2024-12-10 16:32 | EDPHYS ---
Physician Documentation [facility] Name: Beau Razo Age: 54 yrs Sex: Male : 1970 Arrival Date: 12/10/2024 Time: 12:19 Bed 14 Private MD: ED Physician Jonathan Aguayo HPI: 12/10 12:37 This 54 yrs old Male presents to ER via Wheelchair with complaints of Shortness Of rt Breath, Pain All Over. 12:37 Patient with recent diagnosis of small cell lung cancer presents to the ED with rt dyspnea, generalized pain, to the back into the legs. He did have a pathologic fracture with retropulsion that was repaired surgically when the patient was last admitted at [facility]. He is currently undergoing chemotherapy. States that his breathing acutely worsened overnight, states that is difficult for him to breathe. Reports productive sputum. Denies other acute complaints at this time, symptoms are moderate severity, no other aggravating or alleviating factors.. Historical: - Allergies: 12:27 No Known Allergies; iw - PMHx: 12:27 Kidney stone; iw 12:28 small cell cancer; lung cancer; iw - PSHx: 12:28 back; iw - Immunization history:: Adult Immunizations up to date. - Infectious Disease History:: Denies. - Family history:: not pertinent. - Social history:: Smoking status: unknown. ROS: 12:37 Constitutional: Negative for fever, chills, and weight loss, Cardiovascular: Negative rt for chest pain, palpitations, and edema, Abdomen/GI: Negative for abdominal pain, nausea, vomiting, diarrhea, and constipation, Skin: Negative for injury, rash, and discoloration, Neuro: Negative for headache, weakness, numbness, tingling, and seizure, 12:37 Respiratory: Positive for cough, shortness of breath, 12:37 Back: Positive for pain at rest, Negative for injury or acute deformity, 12:37 MS/extremity: Positive for pain, Negative for injury or acute deformity, Exam: 12:37 Constitutional: This is a well developed, well nourished patient who is awake, alert, rt and in no acute distress. Chest/axilla: Normal chest wall appearance and motion. Nontender with no deformity. No lesions are appreciated. Cardiovascular: Regular rate and rhythm with a normal S1 and S2. No gallops, murmurs, or rubs. Normal PMI, no JVD. No pulse deficits. Abdomen/GI: Soft, non-tender, with normal bowel sounds. No distension or tympany. No guarding or rebound. No evidence of tenderness throughout. Skin: Warm, dry with normal turgor. Normal color with no rashes, no lesions, and no evidence of cellulitis. MS/ Extremity: Pulses equal, no cyanosis. Neurovascular intact. Full, normal range of motion. Neuro: Awake and alert, GCS 15, oriented to person, place, time, and situation. Cranial nerves II-XII grossly intact. Motor strength 5/5 in all extremities. Sensory grossly intact. Cerebellar exam normal. Normal gait. 12:37 Respiratory: Coarse breath sounds diffusely, no respiratory distress, 13:52 ECG was reviewed by the Attending Physician. rt Vital Signs: 12:25 BP 108 / 71; Pulse 100; Resp 24; Temp 98; Pulse Ox 94% on R/A; Weight 56.7 kg; Height 5 iw ft. 10 in. ; Pain 9/10; 15:13 BP 120 / 67; Pulse 95; Resp 12; Pulse Ox 100% ; bp 16:19 BP 111 / 67; Pulse 94; Resp 23; Pulse Ox 95% ; bp 12:25 Body Mass Index 17.94 (56.70 kg, 177.8 cm) iw 12:25 Pain Scale: Adult iw MDM: 12:35 Medical Screening Exam initiated rt 17:47 Differential diagnosis: Pneumonia, COPD, mass. Data reviewed: vital signs, nurses rt notes, lab test result(s), EKG, radiologic studies. Consideration of Admission/Observation Escalation of care including admission/observation considered. Management of patient was discussed with the following: Hospitalist: Agrees to admit. I considered the following discharge prescriptions or medication management in the emergency department Medications were administered in the Emergency Department. See MAR. Independent interpretation of the following test(s) in the Emergency Department CT Scan: My interpretation is Infiltrate seen at both lung bases. Care significantly affected by the following chronic conditions: Cancer. Counseling: I had a detailed discussion with the patient and/or guardian regarding the historical points, exam findings, and any diagnostic results supporting the discharge/admit diagnosis, lab results, radiology results, the need for further work-up and treatment in the hospital. Response to treatment: the patient's symptoms have markedly improved after treatment. ED course: Patient's initial presentation was not thought to be due to infectious etiology, and CT scan returned with pneumonia, blood cultures, antibiotics were ordered.. 12/10 12:36 Order name: Basic Metabolic Panel; Complete Time: 14:55 rt 12/10 12:36 Order name: CBC with Diff; Complete Time: 15:37 rt 12/10 12:36 Order name: LFT's; Complete Time: 14:55 rt 12/10 12:36 Order name: NT PRO-BNP; Complete Time: 14:55 rt 12/10 12:36 Order name: Troponin HS; Complete Time: 14:55 rt 12/10 13:36 Order name: CBC Smear Scan; Complete Time: 15:37 EDMS 12/10 15:59 Order name: Blood Culture Adult (2) rt 12/10 15:59 Order name: Lactate w/ 2H reflex if indic.; Complete Time: 11:04 rt 12/10 15:59 Order name: Protime (+inr); Complete Time: 11:04 rt 12/10 15:59 Order name: Ptt, Activated; Complete Time: 11:04 rt 12/10 17:25 Order name: Ghost Lactate-NO COLLECT Timer; Complete Time: 11:04 EDMS 12/10 17:34 Order name: CBC with Automated Diff EDMS 12/10 17:34 Order name: CBC with Automated Diff; Complete Time: 11:04 EDMS 12/10 17:34 Order name: Comprehensive Metabolic Panel EDMS 12/10 17:34 Order name: Comprehensive Metabolic Panel; Complete Time: 11:04 EDMS 12/10 17:34 Order name: Lactate w/ 2H reflex if indic. EDMS 12/10 17:34 Order name: Lactate w/ 2H reflex if indic.; Complete Time: 11:04 EDMS 12/10 17:34 Order name: Lipid Profile EDMS 12/10 17:34 Order name: Lipid Profile; Complete Time: 11:04 EDMS 12/10 17:34 Order name: Magnesium EDMS 12/10 17:34 Order name: Magnesium; Complete Time: 11:04 EDMS 12/10 17:34 Order name: NT PRO-BNP EDMS 12/10 17:34 Order name: NT PRO-BNP; Complete Time: 11:04 EDMS 12/10 17:34 Order name: Phosphorus EDMS 12/10 17:34 Order name: Phosphorus; Complete Time: 11:04 EDMS 12/10 17:34 Order name: Procalcitonin EDMS 12/10 17:34 Order name: Procalcitonin; Complete Time: 11:04 EDMS 12/10 17:36 Order name: Type and Screen; Complete Time: 11:04 EDMS 12/10 17:36 Order name: Ferritin; Complete Time: 11:04 EDMS 12/10 17:36 Order name: Iron; Complete Time: 11:04 EDMS 12/10 17:36 Order name: Magnesium; Complete Time: 11:04 EDMS 12/10 17:36 Order name: NT PRO-BNP; Complete Time: 11:04 EDMS 12/10 17:36 Order name: Retic Count; Complete Time: 11:04 EDMS 12/10 17:36 Order name: Vitamin B12 Level; Complete Time: 11:04 EDMS 12/10 20:39 Order name: Lactate Sepsis 2 HR Follow-up; Complete Time: 11: EDNC 12/11 07:42 Order name: Manual Differential; Complete Time: 11:04 EDNC 12/11 07:55 Order name: Ghost Lactate-NO COLLECT Timer; Complete Time: 11:04 EDMS 12/11 10:20 Order name: Lactate Sepsis 2 HR Follow-up; Complete Time: 11:04 EDNC 12/10 12:36 Order name: CT Chest For PE Angio; Complete Time: 14:55 rt 12/10 15:59 Order name: EKG; Complete Time: 16:00 rt 12/10 17:34 Order name: CONS Physician Consult EDNC 12/10 12:36 Order name: Cardiac monitoring; Complete Time: 14:19 rt 12/10 12:36 Order name: EKG - Nurse/Tech; Complete Time: 14:25 rt 12/10 12:36 Order name: IV Saline Lock; Complete Time: 13:40 rt 12/10 12:36 Order name: Labs collected and sent; Complete Time: 13:40 rt 12/10 12:36 Order name: O2 Per Protocol; Complete Time: 14:19 rt 12/10 12:36 Order name: O2 Sat Monitoring; Complete Time: 14:19 rt 12/10 15:59 Order name: Accucheck; Complete Time: 16:15 rt 12/10 15:59 Order name: IV Saline Lock - Large Bore; Complete Time: 16:15 rt 12/10 15:59 Order name: Vital Signs; Complete Time: 16:15 rt EC:52 Rate is 89 beats/min. Rhythm is regular, Normal Sinus Rhythm with No ectopy. QRS [place] rt is Normal. CA interval is normal. QRS interval is normal. QT interval is normal. No Q waves. T waves are Normal. No ST changes noted. Interpreted by me. Administered Medications: 14:25 Drug: MethylPrednisoLONE IVP 125 mg IVP once Route: IVP; Site: left antecubital; bp 15:11 Follow up: Response: No adverse reaction bp 14:25 Drug: morphine IVP or IV 4 mg IVP once over 4 mins Route: IVP; Infused Over: 4 mins; bp Site: left antecubital; 15:11 Follow up: Response: No adverse reaction bp 14:25 Drug: Ondansetron IVP 4 mg IVP once; over 2 minutes Route: IVP; Site: left antecubital; bp 15:10 Follow up: Response: No adverse reaction bp 14:26 Drug: DuoNeb Nebulize (3:1) (2.5 mg - 0.5 mg) 3 ml Nebulizer once Route: Nebulizer; bp 15:10 Follow up: Response: No adverse reaction bp 16:53 Drug: NS 0.9% IV 1000 ml IV at 1000 ml once; to be given as a bolus over 60 minutes bp Route: IV; Rate: 1000 ml; Site: left antecubital; 18:12 Follow up: IV Status: Completed infusion bp 16:53 Drug: LevaQUIN IVPB 750 mg IVPB once Route: IVPB; Site: left antecubital; bp 18:12 Follow up: IV Status: Completed infusion bp Disposition Summary: 12/10/24 16:31 Hospitalization Ordered Notes: Hospitalization Status: Inpatient Admission rt Provider: Vianney Haynes rt Condition: Stable rt Problem: new rt Symptoms: have improved rt Bed/Room Type: Standard rt Location: Telemetry/MedSurg (Inpatient)(12/11/24 10:32) bd Room Assignment: 225(12/11/24 10:32) bd Diagnosis - Pneumonia, unspecified organism rt - Sepsis, unspecified organism rt Forms: - Medication Reconciliation Form rt - SBAR form rt - Leadership Thank You Letter rt Signatures: Dispatcher [employer] EDMS Elizabeth Rosario bd Antonia Deng, RN RN iw Abdi Timmons, RN RN bp Jonathan Aguayo MD MD rt Corrections: (The following items were deleted from the chart) 12:29 12:28 PSHx: lung cancer; [facility] 12:36 12:36 BASIC METABOLIC PANEL+C.LAB.BRZ ordered. EDMS EDMS 12:36 12:36 CBC+H.LAB.BRZ ordered. EDMS EDMS 12:36 12:36 HEPATIC FUNCTION+C.LAB.BRZ ordered. EDMS EDMS 12:36 12:36 PROBNP+C.LAB.BRZ ordered. EDMS EDMS 12:36 12:36 Troponin High Sensitivity+C.LAB.BRZ ordered. EDMS EDMS 12:36 12:36 Chest For PE Angio+CT.RAD.BRZ ordered. EDMS EDMS 16:00 16:00 BLOOD CULTURE*+BA.LAB.BRZ ordered. EDMS EDMS 16:00 16:00 LACTATE+C.LAB.BRZ ordered. EDMS EDMS 16:00 16:00 PROTIME (+INR)+COAG.LAB.BRZ ordered. EDMS EDMS 16:00 16:00 PTT, ACTIVATED+COAG.LAB.BRZ ordered. EDMS EDMS 18:46 16:31 Telemetry/MedSurg (Inpatient) rt bd 18:46 16:31 rt bd 12/11 10:32 0415 18:46 [facility] ER HOLD bd bd 12/11 10:32 12/10 18:46 ERHOLD- bd bd
--- NOTE | 2024-12-10 16:32 | ER ---
Nurse's Notes [facility] [place]rika Name: Beau Razo Age: 54 yrs Sex: Male : 1970 Arrival Date: 12/10/2024 Time: 12:19 Bed 14 Private MD: Diagnosis: Pneumonia, unspecified organism;Sepsis, unspecified organism Presentation: 12/10 12:25 Chief complaint: Patient states: SOB since being d/c [facility] on the or , was iw admitted for a compression fracture, and for treatment for small cell lung cancer , has been without O2 and his oxygen drops to the 80's at home , and has been in a lot of pain since the surgery. Coronavirus screen: Client presents with at least one sign or symptom that may indicate coronavirus-19. Ebola Screen: No symptoms or risks identified at this time. Initial Sepsis Screen: Does the patient meet any 2 criteria? Yes Does the patient have a suspected source of infection? No. Patient's initial sepsis screen is negative. Risk Assessment: Do you want to hurt yourself or someone else? Patient reports no desire to harm self or others. Onset of symptoms was December 03, 2024. 12:25 Method Of Arrival: Wheelchair iw 12:25 Acuity: GAIL 3 iw Triage Assessment: 13:45 General: Appears in no apparent distress. comfortable, Behavior is calm, cooperative, bp appropriate for age. Pain: Complains of pain in GENERALIZED. EENT: No deficits noted. Neuro: No deficits noted. Cardiovascular: Rhythm is sinus tachycardia. Respiratory: Reports shortness of breath Onset: The symptoms/episode began/occurred suddenly, the patient has moderate shortness of breath. GI: No signs and/or symptoms were reported involving the gastrointestinal system. : No signs and/or symptoms were reported regarding the genitourinary system. Derm: No deficits noted. Musculoskeletal: No deficits noted. Historical: - Allergies: 12:27 No Known Allergies; iw - PMHx: 12:27 Kidney stone; iw 12:28 small cell cancer; lung cancer; iw - PSHx: 12:28 back; iw - Immunization history:: Adult Immunizations up to date. - Infectious Disease History:: Denies. - Family history:: not pertinent. - Social history:: Smoking status: unknown. Screenin:45 [facility] ED Fall Risk Assessment (Adult) History of falling in the last 3 months, bp including since admission No falls in past 3 months (0 pts) Confusion or Disorientation No (0 pts) Intoxicated or Sedated No (0 pts) Impaired Gait No (0 pts) Mobility Assist Device Used No (0 pt) Altered Elimination No (0 pt) Score/Fall Risk Level 0 - 2 = Low Risk Oriented to surroundings. Abuse screen: Denies threats or abuse. Denies injuries from another. Nutritional screening: No deficits noted. On. Tuberculosis screening: No symptoms or risk factors identified. Assessment: 13:45 General: Appears distressed, uncomfortable, Behavior is calm, cooperative, appropriate bp for age. Cardiovascular: Rhythm is sinus tachycardia. Respiratory: Airway is patent Respiratory effort is even, labored, Breath sounds with rhonchi bilaterally. 15:13 Reassessment: Patient is alert, oriented x 3, equal unlabored respirations, skin bp warm/dry/pink. Patient states symptoms have improved. 16:19 Reassessment: Patient appears in no apparent distress at this time. Patient is alert, bp oriented x 3, equal unlabored respirations, skin warm/dry/pink. Vital Signs: 12:25 BP 108 / 71; Pulse 100; Resp 24; Temp 98; Pulse Ox 94% on R/A; Weight 56.7 kg; Height 5 iw ft. 10 in. ; Pain 9/10; 15:13 BP 120 / 67; Pulse 95; Resp 12; Pulse Ox 100% ; bp 16:19 BP 111 / 67; Pulse 94; Resp 23; Pulse Ox 95% ; bp 12:25 Body Mass Index 17.94 (56.70 kg, 177.8 cm) iw 12:25 Pain Scale: Adult iw ED Course: 12:19 Patient arrived in ED. al6 12:26 Jonathan Aguayo MD is Attending Physician. rt 12:27 Triage completed. iw 12:28 Arm band placed on. iw 13:38 Abdi Timmons, SAEID is Primary Nurse. bp 13:39 Initial lab(s) drawn, by me, sent to lab. Inserted saline lock: 20 gauge in right iw antecubital area, using aseptic technique. Blood collected. Flushed with 10 mL NS. 13:45 Patient has correct armband on for positive identification. bp 14:21 CT Chest For PE Angio In Process Unspecified. EDMS 16:31 Vianney Haynes MD is Hospitalizing Provider. rt 12/11 06:00 Provided Education on: need for admission. bm8 06:00 No provider procedures requiring assistance completed. Patient admitted, IV remains in bm8 place. Administered Medications: 12/10 14:25 Drug: MethylPrednisoLONE IVP 125 mg IVP once Route: IVP; Site: left antecubital; bp 15:11 Follow up: Response: No adverse reaction bp 14:25 Drug: morphine IVP or IV 4 mg IVP once over 4 mins Route: IVP; Infused Over: 4 mins; bp Site: left antecubital; 15:11 Follow up: Response: No adverse reaction bp 14:25 Drug: Ondansetron IVP 4 mg IVP once; over 2 minutes Route: IVP; Site: left antecubital; bp 15:10 Follow up: Response: No adverse reaction bp 14:26 Drug: DuoNeb Nebulize (3:1) (2.5 mg - 0.5 mg) 3 ml Nebulizer once Route: Nebulizer; bp 15:10 Follow up: Response: No adverse reaction bp 16:53 Drug: NS 0.9% IV 1000 ml IV at 1000 ml once; to be given as a bolus over 60 minutes bp Route: IV; Rate: 1000 ml; Site: left antecubital; 18:12 Follow up: IV Status: Completed infusion bp 16:53 Drug: LevaQUIN IVPB 750 mg IVPB once Route: IVPB; Site: left antecubital; bp 18:12 Follow up: IV Status: Completed infusion bp Medication: 12/11 06:00 VIS not applicable for this client. bm8 Outcome: 12/10 16:31 Decision to Hospitalize by Provider. rt 12/11 06:00 Admitted to ER Hold. [facility]. bm8 Condition: stable Instructed on follow up and referral plans. the need for admit, Demonstrated understanding of follow-up care, medications, 11:19 Patient left the ED. ph Signatures: Dispatcher [employer] EDMS Antonia Deng, SAEID BREAUX iw Kathy Gutierrez RN RN ph Peltier, Brian, RN RN bp Jonathan Aguayo MD MD rt Nam Hay RN RN bm8 Mariel [email or web address] Corrections: (The following items were deleted from the chart) 04/15 12:29 12:28 PSHx: lung cancer; iw iw
[2024-12-10] MEDS ORDERED: NA CHLORIDE 0.9% 1,000 ML ONE ×2 (16:36→20:35)
[2024-12-10] MEDS ORDERED: Levofloxacin 750mg IV 750 MG/150 ML BAG IV ONE (16:37)
[2024-12-10 17:12] LABS: PT Prothrombin Time 15.3 SECONDS (10-13.0); PTT, Activated Partial Thromb 30.3 SECONDS (27.2-37.4); Protime INR 1.36
--- NOTE | 2024-12-10 17:26 | P.HP ---
Certification for Inpatient Patient admitted to: Inpatient With expected LOS: >2 Midnights Patient will require the following post-hospital care: None Practitioner: I am a practitioner with admitting privileges, knowledge of patient current condition, hospital course, and medical plan of care. Services: Services provided to patient in accordance with Admission requirements found in Title 42 Section 412.3 of the Code of Federal Regulations Patient History Date of Service: 12/10/24 Reason for admission: Acute shortness of breath History of Present Illness: Patient is a 54-year-old gentleman who came to the hospital with shortness of breath. Patient was diagnosed with small cell lung cancer, and patient appears to have bone metastasis. Patient's lung malignancy appears to have occluded patient's right middle lobe, and at this time patient will need to be admitted to the hospital for a possible postobstructive pneumonia. Patient will need to follow-up with oncology so patient can start treatment as soon as possible. At this time patient will be admitted for inpatient hospitalization. Patient has a history of a pathological fracture that was surgically repaired at [facility]. He is currently undergoing chemotherapy and patient has noted that his breathing got worse overnight. Imaging studies in the ER chest showed the lung mass with the obstruction and no pulmonary embolism. Allergies No Known Allergies Allergy (Verified 03/05/12 19:07) Home Medications: Cetirizine HCl 1 tab PO DAILY 12/11/24 Gabapentin 2 tab PO TID 12/11/24 Lactulose 45 ml PO DAILY 12/11/24 Albuterol Inhaler [Ventolin Inhaler*] 2 puff IH Q6H PRN #1 inh 12/12/24 Albuterol Neb [Proventil 0.083% Neb Soln] 2.5 mg NEB [id number] #120 amp 12/12/24 Cefdinir [Cefdinir*] 300 mg PO BID #14 cap 12/12/24 Cyclobenzaprine [Flexeril] 10 mg PO TID PRN #30 tab 12/12/24 Hydrocodone 10/APAP 325 [[place] 10/325] 1 tab PO Q12H PRN #20 tab 12/12/24 Ipratropium Neb [Atrovent*] 0.5 mg NEB [id number] #120 amp 12/12/24 predniSONE [Deltasone] 20 mg PO BID #20 tab 12/12/24 - Past Medical/Surgical History -: Small cell lung cancer Past Surgical History: Patient denies surgical history - Family History Father Family History: Reviewed- Non-Contributory - Social History Smoking Status: Former smoker Alcohol use: No CD- Drugs: No Caffeine use: No Review of Systems 10-point ROS is otherwise unremarkable Physical Examination - Physical Exam General: Alert, In no apparent distress HEENT: Atraumatic, PERRLA, Mucous membr. moist/pink, EOMI, Sclerae nonicteric Neck: Supple, 2+ carotid pulse no bruit, No LAD, Without JVD or thyroid abnormality Respiratory: Clear to auscultation bilaterally, Normal air movement Cardiovascular: Regular rate/rhythm, Normal S1 S2 Gastrointestinal: Normal bowel sounds, No tenderness Musculoskeletal: No tenderness Integumentary: No rashes Neurological: Normal gait, Normal speech, Normal strength at 5/5 x4 extr, Normal tone, Normal affect Lymphatics: No axilla or inguinal lymphadenopathy - Studies Laboratory Data (last 24 hrs) 12/10/24 12/10/24 12/10/24 16:55 13:19 13:19 WBC 7.90 Hgb 8.2 L Hct 23.8 L Plt Count 403 PT 15.3 H INR 1.36 APTT 30.3 Sodium 134 L Potassium 3.8 BUN 9 Creatinine 0.68 L Glucose 111 H Total Bilirubin 0.5 AST 63 H ALT 82 H Alkaline Phosphatase 248 H Assessment & Plan - Problems (Diagnosis) (1) Small cell lung cancer Current Visit: Yes Status: Acute Qualifiers: Laterality: right Lung location: upper lobe of lung Qualified Code(s): C34.11 - Malignant neoplasm of upper lobe, right bronchus or lung (2) Post-obstructive pneumonia due to foreign body aspiration Current Visit: Yes Status: Acute (3) Anemia Current Visit: Yes Status: Acute - Plan Plan: 1. Continue with albuterol and Atrovent nebs 2. Continue with IV steroids 3. Continue with pain control 4. Pulmonary & Oncology follow-up if symptoms do not improve 5. Room air O2 sats 6. Repeat chest x-ray in the morning 7. GI and DVT prophylaxis Discharge Plan: Home Plan to discharge in: Greater than 2 days - Advance Directives Does patient have a Living Will: No Does patient have a Durable POA for Healthcare: No - Code Status/Comfort Care Code Status Assessed: Yes Code Status: Full Code Critical Care: No Time Spent Managing PTS Care (In Minutes): 45
[2024-12-10] MEDS ORDERED: METHYLPREDNISOLONE 40 MG INJ ONE (20:33)
[2024-12-10] MEDS ORDERED: CEFEPIME 2 GM VIAL ONE (20:34)
[2024-12-10] MEDS ORDERED: NA CHLORIDE 0.9% 100 ML ONE (20:35)
[2024-12-10] MEDS: METHYLPREDNISOLONE 40 MG INJ IV SCH (20:45)
[2024-12-10] MEDS: CEFEPIME 2 GM in NA CHLORIDE 0.9% 100 ML IV SCH (20:45)
[2024-12-10] MEDS: NA CHLORIDE 0.9% 1,000 ML IV SCH (20:45)
[2024-12-10] MEDS: IPRATROPIUM BROM 0.5MG/2.5ML NEB SCH (21:21)
[2024-12-10] MEDS: ALBUTEROL 2.5 MG/3 ML NEB SOL NEB SCH (21:21)
[2024-12-10 21:41] VITALS: BMI 17.9
[2024-12-11] MEDS ORDERED: ACETAMINOPHEN 500 MG TAB ONE (01:43)
[2024-12-11] MEDS: ACETAMINOPHEN 500 MG TAB PO PRN (01:45)
[2024-12-11] MEDS ORDERED: NA CHLORIDE 0.9% 100 ML ONE ×2 (03:00→08:35)
[2024-12-11] MEDS ORDERED: METHYLPREDNISOLONE 40 MG INJ ONE ×2 (03:00→08:34)
[2024-12-11] MEDS ORDERED: CEFEPIME 2 GM VIAL ONE ×2 (03:00→08:35)
[2024-12-11 05:03] LABS: Percent Reticulocyte Count 4.1 % (0.4-2.05); RBC Red Blood Cell Count 2.45 M/uL (4.33-5.43)
[2024-12-11 05:04] LABS: Absolute Lymphocytes (CBC) 0.9 K/uL (0.7-4.9); Absolute Monocytes 0.2 K/uL (0.1-1.3); Absolute Neutrophil 8.6 K/uL (1.8-8.0); Basophils % 0.3 % (0-1.3); Eosinophils % 0.3 % (0-4.4); Hemoglobin 7.3 g/dL (13.6-17.9); Lymphocytes % 8.9 % (15.3-44.8); MCHC 34.9 g/dL (32.0-36.0); MPV 6.8 fL (7.6-11.3); Neutrophils % 88.5 % (41.7-73.7); Nucleated RBC Absolute Count 0.1 (0-0); Nucleated Red Blood Cells % 0.6 % (0-0); Platelets 400 thou/uL (152-406); RBC Red Blood Cell Count 2.45 M/uL (4.33-5.43); Red Cell Distribution Width 17.5 % (12.1-15.2)
[2024-12-11 05:42] LABS: Albumin 1.7 g/dL (3.4-5.0); Albumin/Globulin Ratio 0.4 (1.1-1.8); Anion Gap 11.8 mEq/L (5.0-15.0); Bilirubin Total 0.3 mg/dL (0.2-1.0); Globulin 4.1 g/dL (2.3-3.5); Magnesium 1.8 mg/dL (1.6-2.4); Phosphorus 3.6 mg/dL (2.5-4.9); Potassium 3.8 mEq/L (3.5-5.1); Protein, Total 5.8 g/dL (6.4-8.2)
[2024-12-11 05:56] LABS: Ferritin 1472.1 ng/mL (26-388); Magnesium 1.8 mg/dL (1.6-2.4)
[2024-12-11 07:41] LABS: Band Neutrophils 4 % (0-1); Differential Total Cells Count 100; Lymphocytes 5 % (15-42); Monocytes 2 % (0-10); Segmented Neutrophils 89 % (40-80)
[2024-12-11 07:42] LABS: Blood Morphology Comment NOTED (NOT SEEN); Platelet Estimate ADEQ; Polychromasia 2+
[2024-12-11] MEDS ORDERED: IPRATROPIUM BROM 0.5MG/2.5ML ONE (07:57)
[2024-12-11] MEDS ORDERED: ALBUTEROL 2.5 MG/3 ML NEB SOL ONE (07:57)
[2024-12-11] MEDS ORDERED: ENOXAPARIN 40 MG/0.4 ML SQ ONE (08:35)
[2024-12-11] MEDS: ENOXAPARIN 40 MG/0.4 ML SQ SCH (09:00)
[2024-12-11] MEDS ORDERED: MORPHINE 4 MG/ML SYR ONE (09:34)
[2024-12-11] MEDS: MORPHINE 4 MG/ML SYR IV PRN (09:40)
--- NOTE | 2024-12-11 12:05 | P.CNS ---
Date of Consult: 12/11/24 Reason for Consult: Small cell lung cancer with metastases Chief Complaint: Dyspnea and generalized body pain History of Present Illness: Patient is 54 years of age presented last month with a right upper lobe lung mass is diagnosed with small cell lung cancer at [facility] he also had pathological fracture of his vertebra underwent some surgical therapy was discharged went to see oncologist at [facility] ended up here in the hospital complaining of shortness of breath severe pain in his back and his legs patient has lost over 40 pounds in weight with severe muscle wasting Allergies No Known Allergies Allergy (Verified 03/05/12 19:07) Home Medications: Cetirizine HCl 1 tab PO DAILY 12/11/24 Gabapentin 2 tab PO TID 12/11/24 Lactulose 45 ml PO DAILY 12/11/24 Polyethyl Gly 3350 [Glycolax*] 17 gm PO BID 12/11/24 - Past Medical/Surgical History -: Small cell lung cancer -: Kidney stone -: back - Family History Father Family History: Reviewed- Non-Contributory - Social History Smoking Status: Unknown if ever smoked Alcohol use: No CD- Drugs: No Caffeine use: No Place of Residence: Homeless Review of Systems Significan General: Weakness Respiratory: Cough, Shortness of Breath Cardiovascular: Chest Pain Musculoskeletal: Back Pain, Leg Pain Physical Examination Temp Pulse Resp BP Pulse Ox 97.9 F 94 H 23 H 111/67 92 12/11/24 11:27 12/11/24 11:30 12/11/24 11:30 12/11/24 11:30 12/11/24 11:27 General: Alert, Oriented x3 Respiratory: Clear to auscultation bilaterally Cardiovascular: No edema, Regular rate/rhythm, Normal S1 S2 Gastrointestinal: Normal bowel sounds, Soft and benign Musculoskeletal: No clubbing Integumentary: No rashes, No breakdown Laboratory Data (last 24 hrs) 12/10/24 12/10/24 12/10/24 16:55 13:19 13:19 WBC 7.90 Hgb 8.2 L Hct 23.8 L Plt Count 403 PT 15.3 H INR 1.36 APTT 30.3 Sodium 134 L Potassium 3.8 BUN 9 Creatinine 0.68 L Glucose 111 H Total Bilirubin 0.5 AST 63 H ALT 82 H Alkaline Phosphatase 248 H - Problems (1) Small cell lung cancer Current Visit: Yes Status: Acute Plan: Patient is 54 years of age has extensive small cell lung cancer with metastatic disease and his generalized body pain shortness of breath chest discomfort labs reviewed patient is anemic abnormal LFTs and elevated alkaline phosphatase CT scan reviewed he has a large lung mass in the right upper lobe some infiltrate in his left lower lobe is also had some chemotherapy at [facility] overall prognosis is poor his white count is normal it may be from the chemotherapy agree with antibiotics steroids for now also added some scheduled pain meds vital signs are stable he does have some infiltrate in the left lower lobe in addition to a pleural effusion needs to follow-up with his oncologist Qualifiers: Laterality: right Lung location: upper lobe of lung Qualified Code(s): C34.11 - Malignant neoplasm of upper lobe, right bronchus or lung
[2024-12-11] MEDS: NA CHLORIDE 0.9% 250 ML IV ONE (19:27)
[2024-12-12] MEDS: ALBUTEROL 2.5 MG/3 ML NEB SOL ONE (03:22)
[2024-12-12] MEDS: IPRATROPIUM BROM 0.5MG/2.5ML ONE (03:22)
[2024-12-12] MEDS: ALBUTEROL 2.5 MG/3 ML NEB SOL NEB PRN (03:23)
[2024-12-12] MEDS: IPRATROPIUM BROM 0.5MG/2.5ML NEB PRN (03:23)
[2024-12-12] MEDS: MORPHINE 2 MG/ML SYR IV PRN (04:54)
[2024-12-12 05:55] LABS: Absolute Basophils 0.1 K/uL (0-0.5); Absolute Lymphocytes (CBC) 1.1 K/uL (0.7-4.9); Absolute Neutrophil 13.1 K/uL (1.8-8.0); Basophils % 0.3 % (0-1.3); Eosinophils % 0.1 % (0-4.4); Hematocrit 22.9 % (39.6-49.0); Hemoglobin 7.7 g/dL (13.6-17.9); Lymphocytes % 7.2 % (15.3-44.8); MCH 29.1 pg (27.0-35.0); MCHC 33.6 g/dL (32.0-36.0); MCV 86.6 fL (80-100); MPV 6.6 fL (7.6-11.3); Monocytes % 6.3 % (3.3-12.3); Neutrophils % 86.1 % (41.7-73.7); Nucleated RBC Absolute Count 0.1 (0-0); Nucleated Red Blood Cells % 0.9 % (0-0); Platelets 420 thou/uL (152-406); RBC Red Blood Cell Count 2.65 M/uL (4.33-5.43); Red Cell Distribution Width 17.5 % (12.1-15.2)
[2024-12-12 06:18] LABS: Albumin 1.8 g/dL (3.4-5.0); Albumin/Globulin Ratio 0.5 (1.1-1.8); Anion Gap 12.9 mEq/L (5.0-15.0); Bilirubin Total 0.3 mg/dL (0.2-1.0); Phosphorus 2.9 mg/dL (2.5-4.9); Potassium 3.9 mEq/L (3.5-5.1); Protein, Total 5.8 g/dL (6.4-8.2)
[2024-12-12] MEDS: Oxycodone HCl/Acetaminophen 5/325 MG TAB PO PRN (12:03)
[2024-12-12] MEDS: ALPRAZOLAM 0.25 MG TABLET PO PRN (12:03)
[2024-12-12] MEDS ORDERED: IPRATROPIUM BROM 0.5MG/2.5ML NEB PRN (16:37)
[2024-12-12] MEDS: NA CHLORIDE 0.9% 250 ML IV ONE (17:40)
--- NOTE | 2024-12-13 07:29 | P.PN ---
Date of Service: 12/11/24 Subjective Patient still having a lot of pain on deep inspiration. Most likely related to small cell lung cancer with metastasis. Patient is following up with oncology at [facility] and will continue with outpatient workup. Plan to discharge over the next 48 hours. Physical Examination - Physical Exam Vitals: Reviewed General: Alert, In no apparent distress Respiratory: Diminished breath sounds bilaterally with end expiratory wheezing Cardiovascular: Regular rate/rhythm, Normal S1 S2 Gastrointestinal: Normal bowel sounds, No tenderness Neurological: No focal deficits Assessment & Plan - Problems (Diagnosis) (1) Small cell lung cancer Current Visit: Yes Status: Acute Qualifiers: Laterality: right Lung location: upper lobe of lung Qualified Code(s): C34.11 - Malignant neoplasm of upper lobe, right bronchus or lung (2) Post-obstructive pneumonia due to foreign body aspiration Current Visit: Yes Status: Acute (3) Anemia Current Visit: Yes Status: Acute - Plan Continue with plan of care as mentioned below: 1. Continue with albuterol and Atrovent nebs 2. Continue with IV steroids 3. Continue with pain control 4. Pulmonary & Oncology follow-up if symptoms do not improve 5. Room air O2 sats 6. Repeat chest x-ray in the morning 7. GI and DVT prophylaxis Discharge Plan: Home Plan to discharge in: Greater than 2 days - Advance Directives Does patient have a Living Will: No Does patient have a Durable POA for Healthcare: No - Code Status/Comfort Care Code Status Assessed: Yes Code Status: Full Code Critical Care: No Time Spent Managing PTS Care (In Minutes): 30
--- NOTE | 2024-12-13 07:29 | P.PN ---
Date of Service: 12/12/24 Subjective Patient denies any new complaints and clinical symptoms are stable. Pain is stable. Physical Examination - Physical Exam Vitals: Reviewed General: Alert, In no apparent distress Respiratory: Diminished breath sounds bilaterally with end expiratory wheezing; pain on deep inspiration Cardiovascular: Regular rate/rhythm, Normal S1 S2 Gastrointestinal: Normal bowel sounds, No tenderness Neurological: No focal deficits Assessment & Plan - Problems (Diagnosis) (1) Small cell lung cancer Current Visit: Yes Status: Acute Qualifiers: Laterality: right Lung location: upper lobe of lung Qualified Code(s): C34.11 - Malignant neoplasm of upper lobe, right bronchus or lung (2) Post-obstructive pneumonia due to foreign body aspiration Current Visit: Yes Status: Acute (3) Anemia Current Visit: Yes Status: Acute - Plan Continue with plan of care as mentioned below: 1. Continue with albuterol and Atrovent nebs 2. Continue with IV steroids 3. Continue with pain control 4. Pulmonary & Oncology follow-up if symptoms do not improve 5. Room air O2 sats 6. Repeat chest x-ray in the morning 7. GI and DVT prophylaxis Discharge Plan: Home Plan to discharge in: Greater than 2 days - Advance Directives Does patient have a Living Will: No Does patient have a Durable POA for Healthcare: No - Code Status/Comfort Care Code Status Assessed: Yes Code Status: Full Code Critical Care: No Time Spent Managing PTS Care (In Minutes): 30
[2024-12-13 09:11] LABS: Absolute Lymphocytes (CBC) 1.6 K/uL (0.7-4.9); Absolute Monocytes 0.5 K/uL (0.1-1.3); Absolute Neutrophil 14.3 K/uL (1.8-8.0); Basophils % 0.2 % (0-1.3); Eosinophils % 0.1 % (0-4.4); Hematocrit 24.6 % (39.6-49.0); Hemoglobin 8.3 g/dL (13.6-17.9); Lymphocytes % 9.7 % (15.3-44.8); MCH 29.2 pg (27.0-35.0); MCHC 33.7 g/dL (32.0-36.0); MCV 86.7 fL (80-100); MPV 6.6 fL (7.6-11.3); Monocytes % 2.8 % (3.3-12.3); Neutrophils % 87.2 % (41.7-73.7); Nucleated RBC Absolute Count 0.4 (0-0); Nucleated Red Blood Cells % 2.3 % (0-0); Platelets 371 thou/uL (152-406); RBC Red Blood Cell Count 2.83 M/uL (4.33-5.43)
[2024-12-13 09:39] LABS: Albumin/Globulin Ratio 0.5 (1.1-1.8); Anion Gap 11.9 mEq/L (5.0-15.0); Bilirubin Total 0.4 mg/dL (0.2-1.0); Globulin 3.9 g/dL (2.3-3.5); Potassium 3.9 mEq/L (3.5-5.1); Protein, Total 5.9 g/dL (6.4-8.2)
[2024-12-13] MEDS: ENSURE ENLIVE 237 ML CAN PO SCH (13:42)
[2024-12-13] MEDS ORDERED: ALBUTEROL 2.5 MG/3 ML NEB SOL NEB PRN (14:13)
[2024-12-13] MEDS: DOCUSATE NA 100 MG CAP PO ONE (14:19)
[2024-12-13] MEDS: HYDROMORPHONE HCL 0.5 MG/0.5 ML INJ IV PRN (17:01)
[2024-12-13] MEDS: DOCUSATE NA 100 MG CAP PO SCH (20:06)
[2024-12-13] MEDS: Oxycodone HCl/Acetaminophen 5/325 MG TAB PO PRN (20:06)
--- NOTE | 2024-12-14 06:46 | RAD REPORT ---
EXAM: Chest Single View HISTORY: 54 years Male pneumonia COMPARISON: 12/10/2024 FINDINGS: LUNGS/PLEURA: Near-complete whiteout of the right lung with only mild residual aerated lung in the me dial right lung base. Irregular airspace opacities throughout the left lung also present. CARDIAC/MEDIASTINUM: Mild leftward mediastinal shift. Heart size is likely within normal limits. UPPER ABDOMEN: No significant abnormality. BONES: No acute abnormality. T12 vertebroplasty. LINES/TUBES/OTHER: N/A IMPRESSION: Near complete white out of the right lung with worsened aeration compared with the chest CT from 12/10. This likely represents a combination of a large right upper lobe mass, airspace disease at the right lower lobe, and pleural fluid. Irregular airspace disease present in the left lung also present and similar.
[2024-12-14 06:55] LABS: Absolute Lymphocytes (CBC) 1.7 K/uL (0.7-4.9); Absolute Monocytes 1.1 K/uL (0.1-1.3); Absolute Neutrophil 15.7 K/uL (1.8-8.0); Basophils % 0.1 % (0-1.3); Eosinophils % 0.1 % (0-4.4); Hematocrit 24.6 % (39.6-49.0); Hemoglobin 8.3 g/dL (13.6-17.9); Lymphocytes % 9.2 % (15.3-44.8); MCH 29.3 pg (27.0-35.0); MCHC 33.8 g/dL (32.0-36.0); MCV 86.7 fL (80-100); MPV 6.9 fL (7.6-11.3); Neutrophils % 84.6 % (41.7-73.7); Nucleated RBC Absolute Count 0.9 (0-0); Platelets 345 thou/uL (152-406); RBC Red Blood Cell Count 2.83 M/uL (4.33-5.43); Red Cell Distribution Width 18.3 % (12.1-15.2)
[2024-12-14 06:59] LABS: Albumin/Globulin Ratio 0.5 (1.1-1.8); Anion Gap 12.8 mEq/L (5.0-15.0); Bilirubin Total 0.4 mg/dL (0.2-1.0); Magnesium 2.5 mg/dL (1.6-2.4); Potassium 4.8 mEq/L (3.5-5.1)
[2024-12-14 08:29] LABS: Blood Morphology Comment NOTED (NOT SEEN); Platelet Estimate ADEQ; White Blood Cell Scan OK (OK)
[2024-12-14] MEDS: NA CHLORIDE 0.9% 1,000 ML IV SCH (14:00)
[2024-12-14] MEDS: ALBUMIN HUMAN 25% 12.5 GM, FUROSEMIDE 100 MG in NA CHLORIDE 0.9% 40 ML IV SCH (14:09)
[2024-12-14] MEDS: predniSONE 20 MG TAB PO SCH (17:27)
[2024-12-14] MEDS: IPRATROPIUM BROM 0.5MG/2.5ML ONE (19:04)
[2024-12-14] MEDS: ALBUTEROL 2.5 MG/3 ML NEB SOL ONE (19:19)
[2024-12-15] MEDS: ALBUTEROL 2.5 MG/3 ML NEB SOL ONE (00:14)
[2024-12-15] MEDS: IPRATROPIUM BROM 0.5MG/2.5ML ONE (00:14)
[2024-12-15 09:21] VITALS: TEMP 97.8
[2024-12-15 12:30] VITALS: BP 113/69
--- NOTE | 2024-12-15 13:13 | P.PN ---
Date of Service: 12/14/24 Subjective Patient's pain is better controlled. Patient still gets tachypneic from short walks. He does understand that his prognosis is poor but he will need to follow with oncology at discharge. He is scheduled to follow-up on Monday. 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 Continue with albuterol and Atrovent nebs 2. Continue with IV steroids 3. Continue with pain control 4. Pulmonary & Oncology follow-up if symptoms do not improve 5. Patient been arranged for home oxygen 6. Lactic acidosis persistent related to metastatic liver disease 7. I did discuss with patient the importance of follow-up and if his condition continues to decline he needs to proceed with hospice care 8. GI DVT prophylaxis Discharge Plan: Home Plan to discharge in: Greater than 2 days - Advance Directives Does patient have a Living Will: No Does patient have a Durable POA for Healthcare: No - Code Status/Comfort Care Code Status Assessed: Yes Code Status: Full Code Critical Care: No Time Spent Managing PTS Care (In Minutes): 30
--- NOTE | 2024-12-15 13:14 | P.DS ---
Discharge Date: 12/15/24 Disposition: ROUTINE DISCHARGE Discharge Condition: GOOD Reason for Admission: Acute shortness of breath - Problems (1) Small cell lung cancer Current Visit: Yes Status: Acute Qualifiers: Laterality: right Lung location: upper lobe of lung Qualified Code(s): C34.11 - Malignant neoplasm of upper lobe, right bronchus or lung (2) Post-obstructive pneumonia due to foreign body aspiration Current Visit: Yes Status: Acute (3) Anemia Current Visit: Yes Status: Acute Brief History of Present Illness: Patient is a 54-year-old gentleman who came to the hospital with shortness of breath. Patient was diagnosed with small cell lung cancer, and patient appears to have bone metastasis. Patient's lung malignancy appears to have occluded patient's right middle lobe, and at this time patient will need to be admitted to the hospital for a possible postobstructive pneumonia. Patient will need to follow-up with oncology so patient can start treatment as soon as possible. At this time patient will be admitted for inpatient hospitalization. Patient has a history of a pathological fracture that was surgically repaired at [facility]. He is currently undergoing chemotherapy and patient has noted that his breathing got worse overnight. Imaging studies in the ER chest showed the lung mass with the obstruction and no pulmonary embolism. Hospital Course: Patient is a 54-year-old gentleman who was admitted to the hospital with advanced small cell lung cancer with compression atelectasis. Patient's treated with chemo a month ago at [facility]. Patient was scheduled to follow-up with [facility] but patient has not started on chemotherapy or radiation. [facility] and plan is for patient to see her on Monday and Monday to get this set up and patient will need to get started on radiation immediately. Long-term, patient's prognosis was discussed with the patient, and I did talk to the patient about hospice care. At this time he is wanting to try to continue with treatment with chemotherapy and radiation. Hopefully, patient will be strong enough to tolerate his chemotherapy and radiation, but if he is not able to then he will need to proceed with hospice care. Patient will be discharged on antibiotic therapy as well as prednisone and pain control. Patient will continue with neb treatments as needed and we have arranged for him to go home with home oxygen. Patient long-term prognosis was discussed and patient understands the importance of trying to get treatment as soon as possible. At this time, patient is doing well and stable to go home. His respiratory status is stable. Patient was told the importance of follow-up with oncology. Vital Signs/Physical Exam: Temp Pulse Resp BP Pulse Ox 97.8 F 105 H 18 113/69 93 12/15/24 12:00 12/15/24 12:00 12/15/24 12:00 12/15/24 12:00 12/15/24 12:00 General: Alert, In no apparent distress, Oriented x3 Laboratory Data at Discharge: WBC 18.50 thou/uL (4.3-10.9) H 12/14/24 06:29 Hgb 8.3 g/dL (13.6-17.9) L 12/14/24 06:29 Hct 24.6 % (39.6-49.0) L 12/14/24 06:29 Plt Count 345 thou/uL (152-406) 12/14/24 06:29 PT 15.3 SECONDS (10-13.0) H 12/10/24 16:55 INR 1.36 12/10/24 16:55 APTT 30.3 SECONDS (27.2-37.4) 12/10/24 16:55 Sodium 135 mEq/L (136-145) L 12/14/24 06:29 Potassium 4.8 mEq/L (3.5-5.1) D 12/14/24 06:29 BUN 22 mg/dL (7-18) H 12/14/24 06:29 Creatinine 0.65 mg/dL (0.70-1.30) L 12/14/24 06:29 Glucose 117 mg/dL (74-106) H 12/14/24 06:29 Phosphorus 2.9 mg/dL (2.5-4.9) 12/12/24 05:47 Magnesium 2.5 mg/dL (1.6-2.4) H 12/14/24 06:29 Total Bilirubin 0.4 mg/dL (0.2-1.0) 12/14/24 06:29 AST 70 U/L (15-37) H 12/14/24 06:29 ALT 71 U/L (16-61) H 12/14/24 06:29 Alkaline Phosphatase 221 U/L (45-117) H 12/14/24 06:29 Triglycerides 157 mg/dL (<150) H 12/11/24 04:29 Cholesterol 136 mg/dL (<200) 12/11/24 04:29 HDL Cholesterol 38 mg/dL (40-60) L 12/11/24 04:29 Cholesterol/HDL Ratio 3.58 12/11/24 04:29 Home Medications: Cetirizine HCl 1 tab PO DAILY 12/11/24 Gabapentin 2 tab PO TID 12/11/24 Lactulose 45 ml PO DAILY 12/11/24 Albuterol Inhaler [Ventolin Inhaler*] 2 puff IH Q6H PRN #1 inh 12/12/24 Albuterol Neb [Proventil 0.083% Neb Soln] 2.5 mg NEB [id number] #120 amp 12/12/24 Cefdinir [Cefdinir*] 300 mg PO BID #14 cap 12/12/24 Cyclobenzaprine [Flexeril] 10 mg PO TID PRN #30 tab 12/12/24 Hydrocodone 10/APAP 325 [Palmer 10/325] 1 tab PO Q12H PRN #20 tab 12/12/24 Ipratropium Neb [Atrovent*] 0.5 mg NEB [id number] #120 amp 12/12/24 predniSONE [Deltasone] 20 mg PO BID #20 tab 12/12/24 Morphine Sulfate [Ms Contin] 30 mg PO Q12H PRN #60 tab 12/15/24 Trazodone [Desyrel*] 50 mg PO BEDTIME 12/15/24 New Medications: Ipratropium Neb [Atrovent*] 0.5 mg NEB [id number] #120 amp Cefdinir [Cefdinir*] 300 mg PO BID #14 cap Cyclobenzaprine [Flexeril] 10 mg PO TID PRN #30 tab PRN Reason: Muscle Spasms Morphine Sulfate [Ms Contin] 30 mg PO Q12H PRN #60 tab PRN Reason: cancer pain Hydrocodone 10/APAP 325 [Palmer 10/325] 1 tab PO Q12H PRN #20 tab PRN Reason: Pain predniSONE [Deltasone] 20 mg PO BID #20 tab Albuterol Neb [Proventil 0.083% Neb Soln] 2.5 mg NEB [id number] #120 amp Albuterol Inhaler [Ventolin Inhaler*] 2 puff IH Q6H PRN #1 inh PRN Reason: Shortness Of Breath Physician Discharge Instructions: -DC IV and DC home -Follow-up with PCP in 1 to 2 weeks -Follow-up with Oncologist in AM -Follow-up with Pulmonary in 1 to 2 weeks -Please call Dr. Haynes at [phone] if any questions regarding hospital stay -Please call nursing station at [phone] if any nursing or medication questions -Return to the emergency room if symptoms worsen Diet: AHA Activity: Fall precautions Followup: OOT,OOT [Primary Care Provider] - Time spent managing pt's care (in minutes): 35
--- NOTE | 2024-12-15 13:14 | P.PN ---
Date of Service: 12/13/24 Subjective Patient is still short of breath and having pain but otherwise patient's medical symptoms are stable. 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 Continue with albuterol and Atrovent nebs 2. Continue with IV steroids 3. Continue with pain control 4. Pulmonary & Oncology follow-up if symptoms do not improve 5. Patient been arranged for home oxygen 6. Lactic acidosis persistent related to metastatic liver disease 7. I did discuss with patient the importance of follow-up and if his condition continues to decline he needs to proceed with hospice care 8. GI DVT prophylaxis Discharge Plan: Home Plan to discharge in: Greater than 2 days - Advance Directives Does patient have a Living Will: No Does patient have a Durable POA for Healthcare: No - Code Status/Comfort Care Code Status Assessed: Yes Code Status: Full Code Critical Care: No Time Spent Managing PTS Care (In Minutes): 25
[2024-12-15 14:06] VITALS: O2SAT 93
--- NOTE | 2024-12-16 09:19 | ECHO ---
HEIGHT: 5 ft 10 in WEIGHT: 125 lb 6.4 oz DATE OF STUDY: 12/13/[address]: Vianney Haynes MD 2-DIMENSIONAL: YES M.MODE: YES DOPPLER: YES COLOR FLOW: YES TDS: PORTABLE: YES DEFINITY: BUBBLE STUDY: DIAGNOSIS: CONGESTIVE HEART FAILURE CARDIAC HISTORY: CATHERIZATION: SURGERY: PROSTHETIC VALVE: PACEMAKER: MEASUREMENTS (cm) DIASTOLIC (NORMALS) SYSTOLIC (NORMALS) IVSd 0.9 (0.6-1.2) LA Diam 3.2 (1.9-4.0) LVEF 55-60% LVIDd 3.6 (3.5-5.7) LVIDs 2.7 (2.0-3.5) %FS 27% LVPWd 0.9 (0.6-1.2) Ao Diam 2.7 (2.0-3.7) 2 DIMENSIONAL ASSESSMENT: RIGHT ATRIUM: NORMAL LEFT ATRIUM: NORMAL RIGHT VENTRICLE: NORMAL LEFT VENTRICLE: NORMAL TRICUSPID VALVE: MODERATE TRICUSPID REGURGITATION MITRAL VALVE: MILD MITRAL REGURGITATION PULMONIC VALVE: MILD PULMONIC INSUFFICIENCY AORTIC VALVE: MODERATE AORTIC INSUFFICIENCY PERICARDIAL EFFUSION: NONE AORTIC ROOT: NORMAL LEFT VENTRICULAR WALL MOTION: NORMAL DOPPLER/COLOR FLOW: SEE BELOW COMMENTS: 1. NORMAL LEFT VENTRICULAR EJECTION FRACTION 55-60% 2. MILD MITRAL REGURGITATION 3. MILD TO MODERATE TRICUSPID REGURGITATION 4. MILD TO MODERATE AORTIC INSUFFIENCY 5. RIGHT VENTRICULAR SYSTOLIC PRESSURE IS 45-50 mmHg 6. PLEURAL EFFUSION IS PRESENT 7. TRIVIAL PERICARDIAL EFFUSION TECHNOLOGIST: RONNY GREEN
--- NOTE | 2024-12-18 13:12 | EKG ---
Test Date: 2024-12-10 Test Time: 13:45:08 Plugger Man: SIMONE MEASUREMENT RESULTS: Intervals: Rate: 89 MA: 98 QRSD: 84 QT: 376 QTc: 457 [place]: P: 85 MA: 98 QRS: 84 T: 80 INTERPRETIVE STATEMENTS: Sinus rhythm with short MA Moderate voltage criteria for LVH, may be normal variant Borderline ECG No previous ECG available for comparison Electronically Signed On 12-18-24 12:50:51 CDT by Johnathan Cummings
== END 2024-12-15 14:41 | disposition home or self-care (01) | DRG 178 ==
LOC: ER 12:19 → ERHOLD 17:27 → 2ND 12-11 10:47
PROVIDERS: ADMIT Hospitalist; ATTEND Hospitalist
DX: J69.0 Pneumonitis due to inhalation of food and vomit (principal); C34.11 Malignant neoplasm of upper lobe, right bronchus or lung; C79.51 Secondary malignant neoplasm of bone; Z59.00 Homelessness unspecified; E87.20 Acidosis, unspecified; D64.9 Anemia, unspecified; Z79.52 Long term (current) use of systemic steroids; Z79.899 Other long term (current) drug therapy; Z87.891 Personal history of nicotine dependence
CPT/HCPCS: 36415; 71045; 71275; 80048; 80053; 80061; 80076; 82607; 82728; 82947; 83540; 83605; 83735; 83880; 84100; 84145; 84484; 85025; 85044; 85610; 85730; 86850; 86900; 86901; 87040; 93005; 93306; 94640; 96365; 96375; 99285; J0692; J1171; J1650; J2270; J2405; J2919; J7030; J7050; J7512; J7613; J7644; P9047; Q9967

== ENCOUNTER 2024-12-18 13:40 | Emergency (ER) | payer OTHER ==
[2024-12-18] MEDS ORDERED: LEVALBUTEROL 1.25 MG/3 ML NEB ONE (13:56)
[2024-12-18] MEDS ORDERED: IPRATROPIUM BROM 0.5MG/2.5ML ONE (13:56)
[2024-12-18] MEDS ORDERED: NA CHLORIDE 0.9% 1,000 ML ONE ×2 (13:56→15:19)
[2024-12-18 14:34] LABS: PT Prothrombin Time 16.8 SECONDS (10-13.0); Protime INR 1.5
--- NOTE | 2024-12-18 14:38 | RAD REPORT ---
EXAM: Chest Single View HISTORY: 54 years Male COPD;Dyspnea COMPARISON: 12/14/2024 FINDINGS: LUNGS/PLEURA: Redemonstrated near complete white out of the right lung with only a small volume of ae rated right lung. This is secondary to a large right upper lobe mass, probably small to moderate right pleural effusion, and probably some underlying atelectasis or consolidation. Increased airspace disease throughout the left lung. CARDIAC/MEDIASTINUM: There is leftward mediastinal shift. UPPER ABDOMEN: No significant abnormality. BONES: No acute abnormality. LINES/TUBES/OTHER: N/A IMPRESSION: Increasing airspace disease throughout the left lung which could reflect edema or pneumonia.. Near-co mplete whiteout of the right lung remains and likely reflects a combination of large right upper lobe mass, moderate pleural effusion, and possibly pneumonia as well.
--- NOTE | 2024-12-18 14:48 | EDPHYS ---
Physician Documentation [facility] Name: Beau Razo Age: 54 yrs Sex: Male : 1970 Arrival Date: 12/18/2024 Time: 13:40 Bed 19 Private MD: ED Physician Kj Mckeon HPI: 12/18 14:36 This 54 yrs old Male presents to ER via EMS with complaints of Breathing hilary Difficulty. 14:36 The patient has shortness of breath at rest, with light activity. Onset: The hilary symptoms/episode began/occurred 5 day(s) ago. Duration: The symptoms are continuous, and are steadily getting worse. The patient's shortness of breath is aggravated by nothing, coughing, is alleviated by sitting up, application of supplemental oxygen. Associated signs and symptoms: Pertinent positives: non-productive cough. Severity of symptoms: At their worst the symptoms were moderate in the emergency department the symptoms are worse markedly. The patient has experienced similar episodes in the past, several times. Historical: - Allergies: 13:49 No Known Allergies; kc6 - PMHx: 13:51 Kidney stone; Lung Cancer; small cell cancer; iw - PSHx: 13:51 back; iw - Immunization history:: Adult Immunizations up to date. - Infectious Disease History:: Denies. - Social history:: Smoking status: Patient/guardian denies using tobacco, Stopped _ months ago 1. ROS: 14:42 Constitutional: Negative for fever, chills, and weight loss, Eyes: Negative for injury, hilary pain, redness, and discharge, ENT: Negative for injury, pain, and discharge, Neck: Negative for injury, pain, and swelling, Cardiovascular: Negative for chest pain, palpitations, and edema, Abdomen/GI: Negative for abdominal pain, nausea, vomiting, diarrhea, and constipation, Back: Negative for injury and pain, : Negative for injury, bleeding, discharge, and swelling, MS/Extremity: Negative for injury and deformity, Skin: Negative for injury, rash, and discoloration, Neuro: Negative for headache, weakness, numbness, tingling, and seizure, Psych: Negative for depression, anxiety, suicide ideation, homicidal ideation, and hallucinations, Allergy/Immunology: Negative for hives, rash, and allergies, Endocrine: Negative for neck swelling, polydipsia, polyuria, polyphagia, and marked weight changes, Hematologic/Lymphatic: Negative for swollen nodes, abnormal bleeding, and unusual bruising, 14:42 Respiratory: Positive for cough, shortness of breath, at rest. Exam: 14:42 Constitutional: This is a well developed, well nourished patient who is awake, alert, hilary and in no acute distress. Head/Face: Normocephalic, atraumatic. Eyes: Pupils equal round and reactive to light, extra-ocular motions intact. Lids and lashes normal. Conjunctiva and sclera are non-icteric and not injected. Cornea within normal limits. Periorbital areas with no swelling, redness, or edema. ENT: Nares patent. No nasal discharge, no septal abnormalities noted. Tympanic membranes are normal and external auditory canals are clear. Oropharynx with no redness, swelling, or masses, exudates, or evidence of obstruction, uvula midline. Mucous membranes moist. Neck: Trachea midline, no thyromegaly or masses palpated, and no cervical lymphadenopathy. Supple, full range of motion without nuchal rigidity, or vertebral point tenderness. No Meningismus. Chest/axilla: Normal chest wall appearance and motion. Nontender with no deformity. No lesions are appreciated. Abdomen/GI: Soft, non-tender, with normal bowel sounds. No distension or tympany. No guarding or rebound. No evidence of tenderness throughout. Back: No spinal tenderness. No costovertebral tenderness. Full range of motion. Male : Normal genitalia with no discharge or lesions. Skin: Warm, dry with normal turgor. Normal color with no rashes, no lesions, and no evidence of cellulitis. MS/ Extremity: Pulses equal, no cyanosis. Neurovascular intact. Full, normal range of motion., bilateral aka Neuro: Awake and alert, GCS 15, oriented to person, place, time, and situation. Cranial nerves II-XII grossly intact. Motor strength 5/5 in all extremities. Sensory grossly intact. Cerebellar exam normal. Normal gait. Psych: Awake, alert, with orientation to person, place and time. Behavior, mood, and affect are within normal limits. 14:42 Cardiovascular: Rate: tachycardic, actual rate is 103 bpm, Rhythm: regular, Pulses: Pulses are 4+ in bilateral radial, brachial, femoral, popliteal, posterior tibial and and dorsalis pedis arteries.. Heart sounds: normal, normal S1and S2, no S3 or S4, no murmur, no rub, no gallop, Edema: is not appreciated, JVD: is not appreciated, 14:42 ECG was reviewed by the Attending Physician. 14:48 ECG was reviewed by the Attending Physician. [facility] Vital Signs: 13:50 BP 107 / 61; Pulse 103; Resp 33; Temp 97.9; Pulse Ox 98% on Non-rebreather mask; Weight kj2 56.7 kg; Height 5 ft. 10 in. ; 15:41 BP 115 / 73; Pulse 105; Resp 35 S; Pulse Ox 93% on Non-rebreather mask; kc6 16:37 BP 129 / 75; Pulse 104; Resp 30 S; Pulse Ox 100% on Non-rebreather mask; kc6 13:50 Body Mass Index 17.94 (56.70 kg, 177.8 cm) kj2 MDM: 13:43 Medical Screening Exam initiated hilary 13:44 Medical Screening Exam initiated hilary 14:44 Differential diagnosis: Anemia asthma, Bronchitis Chronic Obstructive Pulmonary Disease hilary acute pericarditis, anxiety, coronary artery disease chest wall pain, pleurisy, pneumonia, pneumothorax, Pneumothorax pulmonary edema, Pulmonary Embolism reactive airway disease, Sepsis Unstable Angina. Antibiotic administration: Not indicated. HEART Score: History: Slightly Suspicious (0), ECG: Non specific repolarization disturbance / LBTB / PM (1), Age: > 45 and < 65 years (1), Risk Factors: 1 or 2 risk factors (1), [Hypercholesterolemia]. Immunization status: Influenza vaccine: Not up to date. Data reviewed: vital signs, nurses notes, EMS record, lab test result(s), EKG, radiologic studies, plain films. 15:01 ED course: [facility] said no beds, unlikely, will try [facility] because of the pt critical [facility] nature. 12/18 13:48 Order name: Basic Metabolic Panel; Complete Time: 15: [facility] 12/18 13:48 Order name: CBC with Diff [facility] 12/18 13:48 Order name: LFT's; Complete Time: 15:06 [facility] 12/18 13:48 Order name: Magnesium; Complete Time: 15: [facility] 12/18 13:48 Order name: NT PRO-BNP; Complete Time: 15: [facility] 12/18 13:48 Order name: PT-INR; Complete Time: 14:53 [facility] 12/18 13:48 Order name: Troponin HS; Complete Time: 15:06 [facility] 12/18 13:48 Order name: Blood Culture Adult (2) 12/18 13:48 Order name: Lipase; Complete Time: 15:06 [facility] 12/18 15:12 Order name: Lactate w/ 2H reflex if indic.; Complete Time: 16:09 [facility] 12/18 16:03 Order name: Ghost Lactate-NO COLLECT Timer EDMT 12/18 13:48 Order name: XRAY Chest (1 view); Complete Time: 14:53 [facility] 12/18 16:00 Order name: BIPAP [facility] 12/18 16:21 Order name: BIPAP [facility] 12/18 13:48 Order name: Cardiac monitoring; Complete Time: 13:48 [facility] 12/18 13:48 Order name: EKG - Nurse/Tech; Complete Time: 13:48 [facility] 12/18 13:48 Order name: IV Saline Lock; Complete Time: 14:23 [facility] 12/18 13:48 Order name: Labs collected and sent; Complete Time: 14:23 [facility] 12/18 13:48 Order name: O2 Per Protocol; Complete Time: 13:48 [facility] 12/18 13:48 Order name: O2 Sat Monitoring; Complete Time: 13:48 [facility] 12/18 16:16 Order name: IV Saline Lock - Large Bore; Complete Time: 16:17 [facility] EC:48 Rate is 105 beats/min. Rhythm is regular. QRS [place] is Normal. [place] interval is normal. hilary QRS interval is normal. QT interval is normal. No Q waves. T waves are Normal. No ST changes noted. Clinical impression: Sinus tachycardia and No evidence of ischemia. Interpreted by me. Reviewed by me. Administered Medications: 15:12 Discontinued: ns 0.9% 500 ml 500 ml IV at 1 bolus once; to be given as a bolus over 30 hilary minutes 14:08 Drug: NS 0.9% IV 500 ml 500 ml IV at 125 ml/hr once Volume: 500 ml; Route: IV; Rate: kj2 125 ml/hr; Site: left antecubital; 16:36 Follow up: Response: No adverse reaction; IV Status: Infusion continued upon transfer; kc6 IV Intake: 500ml 14:08 Drug: Levalbuterol Inhalation 2.5 mg Inhalation once Route: Inhalation; kj2 16:36 Follow up: Response: No adverse reaction; No change in condition kc6 14:08 Drug: Ipratropium Inhalation Aerosol 0.5 mg Inhalation once Route: Inhalation; kj2 16:36 Follow up: Response: No adverse reaction; No change in condition kc6 14:09 Drug: NS 0.9% IV 500 ml 500 ml IV at 1 bolus once; to be given as a bolus over 30 kj2 minutes Volume: 500 ml; Route: IV; Rate: 1 bolus; Site: left antecubital; 16:28 Follow up: Response: No adverse reaction; IV Status: Completed infusion; IV Intake: kc6 500ml 15:41 Drug: NS 0.9% IV (30 ml/kg) 30 ml/kg IV at bolus once; Sepsis Protocol; to be given as kc6 a bolus over 90 minutes Route: IV; Rate: bolus; Site: left forearm; 16:36 Follow up: Response: No adverse reaction; IV Status: Completed infusion; IV Intake: kc6 1000ml 15:41 Drug: Piperacillin-Tazobactam IVPB 3.375 grams IVPB once over 60 mins; (mix in NS 100 kc6 mL) Route: IVPB; Infused Over: 60 mins; Site: left forearm; 16:36 Follow up: Response: No adverse reaction; IV Status: Completed infusion; IV Intake: kc6 100ml Disposition Summary: 12/18/24 14:47 Transfer Ordered Notes: Reason: Higher level of care hilary Condition: Fair hilary Problem: new hilary Symptoms: have improved hilary Transfer Location: [facility]-System(12/18/24 16:16) hilary Accepting Physician: [facility](12/18/24 17:14) kc6 Diagnosis - Malignant pleural effusion - right hemithorax opacification hilary - Malignant neoplasm of upper lobe, right bronchus or lung hilary - Hypoxemia hilary - Anemia, unspecified hilary - Elevated white blood cell count hilary - Severe sepsis without septic shock hilary Forms: - Medication Reconciliation Form hilary - SBAR form hilary Signatures: Dispatcher [employer] Kj Reyna MD MD cha Williams, Irene, RN RN iw Saravanan Mendez, LAW TUTOR-C LAW TUTOR-Cla1 Mervat Harvey RN RN kc6 Joanna Dhillon RN RN kj2 Corrections: (The following items were deleted from the chart) 13:49 13:48 BASIC METABOLIC PANEL+C.LAB.BRZ ordered. EDMS EDMS 13:49 13:48 CBC+H.LAB.BRZ ordered. EDMS EDMS 13:49 13:48 HEPATIC FUNCTION+C.LAB.BRZ ordered. EDMS EDMS 13:49 13:48 MAGNESIUM+C.LAB.BRZ ordered. EDMS EDMS 13:49 13:48 PROBNP+C.LAB.BRZ ordered. EDMS EDMS 13:49 13:48 PROTIME (+INR)+COAG.LAB.BRZ ordered. EDMS EDMS 13:49 13:48 Troponin High Sensitivity+C.LAB.BRZ ordered. EDMS EDMS 13:49 13:48 BLOOD CULTURE*+BA.LAB.BRZ ordered. EDMS EDMS 13:49 13:48 LIPASE+C.LAB.BRZ ordered. EDMS EDMS 13:49 13:49 Chest Single View+RAD.RAD.BRZ ordered. EDMS EDMS 14:48 14:42 Rate is 15 beats/min. Rhythm is regular. QRS [place] is Normal. [place] interval is hilary normal. QRS interval is normal. QT interval is normal. No Q waves. T waves are Normal. No ST changes noted. Clinical impression: Sinus tachycardia and No evidence of ischemia. Interpreted by me. Reviewed by me. hilary 16:16 14:[address] [facility] hilary hilary 16:16 14:47 [facility] hilary hilary 16:16 16:16 [facility] hilary hilary 16:23 16:16 [facility] hilary hilary 17:14 16:23 [facility] hilary kc6
--- NOTE | 2024-12-18 14:48 | ER ---
Nurse's Notes [facility] Name: Beau Razo Age: 54 yrs Sex: Male : 1970 Arrival Date: 12/18/2024 Time: 13:40 Bed 19 Private MD: Diagnosis: Malignant pleural effusion-right hemithorax opacification;Malignant neoplasm of upper lobe, right bronchus or lung;Hypoxemia;Anemia, unspecified;Elevated white blood cell count;Severe sepsis without septic shock Presentation: 12/18 13:49 Chief complaint: EMS states: toned out for low O2, SOb, hx of lung cancer,was 40-50 % iw on home O2 concentrator, was up to 93% on NRB, pt recently admitted for pneumonia. Coronavirus screen: Client presents with at least one sign or symptom that may indicate coronavirus-19. 13:49 Method Of Arrival: EMS: [facility] iw 13:49 Acuity: GAIL 2 iw 13:49 Initial Sepsis Screen: Does the patient meet any 2 criteria? RR > 20 per min. HR > 90 kc6 bpm. Does the patient have a suspected source of infection? No. Patient's initial sepsis screen is negative. 13:51 Ebola Screen: No symptoms or risks identified at this time. Risk Assessment: Do you iw want to hurt yourself or someone else? Patient reports no desire to harm self or others. Onset of symptoms was December 18, 2024. Historical: - Allergies: 13:49 No Known Allergies; kc6 - PMHx: 13:51 Kidney stone; Lung Cancer; small cell cancer; iw - PSHx: 13:51 back; iw - Immunization history:: Adult Immunizations up to date. - Infectious Disease History:: Denies. - Social history:: Smoking status: Patient/guardian denies using tobacco, Stopped _ months ago 1. Screenin:45 [facility] ED Fall Risk Assessment (Adult) History of falling in the last 3 months, kc6 including since admission No falls in past 3 months (0 pts) Confusion or Disorientation No (0 pts) Intoxicated or Sedated No (0 pts) Impaired Gait No (0 pts) Mobility Assist Device Used No (0 pt) Altered Elimination No (0 pt) Score/Fall Risk Level 0 - 2 = Low Risk Oriented to surroundings, Maintained a safe environment. Abuse screen: Denies threats or abuse. Denies injuries from another. Nutritional screening: No deficits noted. Tuberculosis screening: No symptoms or risk factors identified. Assessment: 13:50 General: Appears distressed, uncomfortable, slender, well groomed, Behavior is calm, kc6 cooperative, appropriate for age. Pain: Denies pain. Neuro: Level of Consciousness is awake, alert, obeys commands, Oriented to person, place, time, situation, Appropriate for age. Cardiovascular: Denies chest pain, Heart tones S1 S2 present Capillary refill < 3 seconds Rhythm is sinus tachycardia. Respiratory: Reports shortness of breath at rest on exertion air hunger Airway is patent Trachea midline Respiratory effort is even, with nasal flaring, pursed lip, using tripod position, Respiratory pattern is symmetrical, tachypnea Breath sounds with crackles in right upper lobe, right middle lobe, right posterior upper lobe and right posterior middle lobe Onset: The symptoms/episode began/occurred today, the patient has severe shortness of breath. GI: No signs and/or symptoms were reported involving the gastrointestinal system. : No signs and/or symptoms were reported regarding the genitourinary system. EENT: No signs and/or symptoms were reported regarding the EENT system. Derm: No signs and/or symptoms reported regarding the dermatologic system. Skin is intact, is healthy with good turgor, Skin is dry, Skin is jaundiced, pink, Skin temperature is warm. Musculoskeletal: No signs and/or symptoms reported regarding the musculoskeletal system. Circulation, motion, and sensation intact. Range of motion: intact in all extremities. 14:50 Reassessment: Patient appears in no apparent distress at this time. No changes from kc6 previously documented assessment. Patient and/or family updated on plan of care and expected duration. Pain level reassessed. Patient is alert, oriented x 3, equal unlabored respirations, skin warm/dry/pink. 15:50 Reassessment: Patient appears in no apparent distress at this time. No changes from kc6 previously documented assessment. Patient and/or family updated on plan of care and expected duration. Pain level reassessed. Patient is alert, oriented x 3, equal unlabored respirations, skin warm/dry/pink. 16:00 Reassessment: pt appears to be 70% on NRB mask. pt repositioned and coached through kc6 deep breathing. MD made aware, verbal order received to contact RT and put pt on bipap. 16:41 Reassessment: Patient appears in no apparent distress at this time. No changes from kc6 previously documented assessment. Patient and/or family updated on plan of care and expected duration. Pain level reassessed. Patient is alert, oriented x 3, equal unlabored respirations, skin warm/dry/pink. Patient states symptoms have not improved. Vital Signs: 13:50 BP 107 / 61; Pulse 103; Resp 33; Temp 97.9; Pulse Ox 98% on Non-rebreather mask; Weight kj2 56.7 kg; Height 5 ft. 10 in. ; 15:41 BP 115 / 73; Pulse 105; Resp 35 S; Pulse Ox 93% on Non-rebreather mask; kc6 16:37 BP 129 / 75; Pulse 104; Resp 30 S; Pulse Ox 100% on Non-rebreather mask; kc6 13:50 Body Mass Index 17.94 (56.70 kg, 177.8 cm) kj2 ED Course: 13:43 Patient arrived in ED. hilary 13:44 Kj Mckeon MD is Attending Physician. hilary 13:45 Patient has correct armband on for positive identification. Placed in gown. Bed in low kc6 position. Call light in reach. Side rails up X2. Adult w/ patient. compliance monitor on. Pulse ox on. NIBP on. Door closed. Noise minimized. Lights dimmed. Warm blanket given. Pillow given. Verbal reassurance given. 13:48 Mervat Harvey, RN is Primary Nurse. kc6 13:51 Triage completed. iw 13:52 Arm band placed on. iw 14:00 EKG done, by ED staff, reviewed by Kj Mckeon MD. ty 14:05 Missed attempt(s): 20 gauge Bleeding controlled, band aid applied, catheter tip intact. ty 14:05 First set of blood cultures drawn by me. ty 14:18 Initial lab(s) drawn, by me, sent to lab. Second set of blood cultures drawn. Inserted ty saline lock: 20 gauge in right forearm, using aseptic technique. Blood collected. Flushed with 10 mL NS. 14:23 Basic Metabolic Panel Sent. ty 14:23 CBC with Diff Sent. ty 14:23 LFT's Sent. ty 14:23 Blood Culture Adult (2) Sent. ty 14:23 Lipase Sent. ty 14:23 Magnesium Sent. ty 14:23 NT PRO-BNP Sent. ty 14:23 PT-INR Sent. ty 14:23 Troponin HS Sent. ty 14:24 XRAY Chest (1 view) In Process Unspecified. EDMS 15:00 transfer to [facility] initiated by Dr Mckeon. bd 16:03 was contacted by Reji Meléndez, ICU bed not available at this time,pt will be put on a bd waiting list. initiated transfer to [facility]. 17:13 No provider procedures requiring assistance completed. Patient transferred, IV remains kc6 in place. Administered Medications: 15:12 Discontinued: ns 0.9% 500 ml 500 ml IV at 1 bolus once; to be given as a bolus over 30 hilary minutes 14:08 Drug: NS 0.9% IV 500 ml 500 ml IV at 125 ml/hr once Volume: 500 ml; Route: IV; Rate: kj2 125 ml/hr; Site: left antecubital; 16:36 Follow up: Response: No adverse reaction; IV Status: Infusion continued upon transfer; kc6 IV Intake: 500ml 14:08 Drug: Levalbuterol Inhalation 2.5 mg Inhalation once Route: Inhalation; kj2 16:36 Follow up: Response: No adverse reaction; No change in condition kc6 14:08 Drug: Ipratropium Inhalation Aerosol 0.5 mg Inhalation once Route: Inhalation; kj2 16:36 Follow up: Response: No adverse reaction; No change in condition kc6 14:09 Drug: NS 0.9% IV 500 ml 500 ml IV at 1 bolus once; to be given as a bolus over 30 kj2 minutes Volume: 500 ml; Route: IV; Rate: 1 bolus; Site: left antecubital; 16:28 Follow up: Response: No adverse reaction; IV Status: Completed infusion; IV Intake: kc6 500ml 15:41 Drug: NS 0.9% IV (30 ml/kg) 30 ml/kg IV at bolus once; Sepsis Protocol; to be given as kc6 a bolus over 90 minutes Route: IV; Rate: bolus; Site: left forearm; 16:36 Follow up: Response: No adverse reaction; IV Status: Completed infusion; IV Intake: kc6 1000ml 15:41 Drug: Piperacillin-Tazobactam IVPB 3.375 grams IVPB once over 60 mins; (mix in NS 100 kc6 mL) Route: IVPB; Infused Over: 60 mins; Site: left forearm; 16:36 Follow up: Response: No adverse reaction; IV Status: Completed infusion; IV Intake: kc6 100ml Medication: 17:14 VIS not applicable for this client. kc6 Intake: 16:28 IV: 500ml; Total: 500ml. kc6 16:36 IV: 100ml; Total: 600ml. kc6 16:36 IV: 1000ml; Total: 1600ml. kc6 16:36 IV: 500ml; Total: 2100ml. kc6 Outcome: 14:47 ER care complete, transfer ordered by MD. richard 17:13 Transferred by ground EMS [facility] to [facility], Transfer form kc6 completed. 17:13 critical 17:13 Instructed on the need for transfer, 17:14 Patient left the ED. kc6 Signatures: Dispatcher [employer] EDMS Elizabeth Rosario Corey, MD MD cha Williams, Irene, RN Mervat Rosenberg RN RN kc6 Kevon Middleton Krystal, RN RN kj2
[2024-12-18 14:55] LABS: Albumin 1.8 g/dL (3.4-5.0); Albumin/Globulin Ratio 0.4 (1.1-1.8); Anion Gap 13.3 mEq/L (5.0-15.0); Bilirubin Direct 0.3 mg/dL (0-0.2); Bilirubin Indirect, Calculated 0.5 mg/dL (0.2-0.8); Bilirubin Total 0.8 mg/dL (0.2-1.0); Globulin 4.1 g/dL (2.3-3.5); Potassium 4.3 mEq/L (3.5-5.1); Protein, Total 5.9 g/dL (6.4-8.2)
[2024-12-18 15:03] LABS: Absolute Basophils 0.1 K/uL (0-0.5); Absolute Eosinophils 0.1 K/uL (0-0.5); Absolute Lymphocytes (CBC) 1.7 K/uL (0.7-4.9); Absolute Monocytes 0.9 K/uL (0.1-1.3); Absolute Neutrophil 20.4 K/uL (1.8-8.0); Basophils % 0.4 % (0-1.3); Eosinophils % 0.4 % (0-4.4); Hematocrit 23.7 % (39.6-49.0); Lymphocytes % 7.3 % (15.3-44.8); MCH 29.5 pg (27.0-35.0); MCHC 33.7 g/dL (32.0-36.0); MCV 87.5 fL (80-100); MPV 6.9 fL (7.6-11.3); Monocytes % 3.7 % (3.3-12.3); Neutrophils % 88.2 % (41.7-73.7); Nucleated RBC Absolute Count 0.3 (0-0); Nucleated Red Blood Cells % 1.1 % (0-0); Platelets 97 thou/uL (152-406); RBC Red Blood Cell Count 2.71 M/uL (4.33-5.43)
[2024-12-18] MEDS ORDERED: PIPERACIL/TAZO 3.375 GM VIAL IV ONE (15:19)
[2024-12-18] MEDS ORDERED: NA CHLORIDE 0.9% 100 ML ONE (15:19)
[2024-12-18 17:44] VITALS: TEMP 97.9
[2024-12-18 17:48] VITALS: BP 129/75; O2SAT 100
[2024-12-18 18:15] LABS: Band Neutrophils 31 % (0-1); Differential Total Cells Count 100; Lymphocytes 7 % (15-42); Metamyelocytes 4 % (0-0); Monocytes 3 % (0-10); Segmented Neutrophils 55 % (40-80)
[2024-12-18 18:17] LABS: Anisocytosis SLIGHT; Blood Morphology Comment NOTED (NOT SEEN); Nucleated Red Blood Cells 4 /100WBC; Platelet Estimate DECR; Polychromasia 1+
--- NOTE | 2024-12-19 12:12 | EKG ---
Test Date: 2024-12-18 Test Time: 13:55:17 Photography Sales Associate: TO MEASUREMENT RESULTS: Intervals: Rate: 105 IA: 92 QRSD: 80 QT: 320 QTc: 422 [place]: P: 55 IA: 92 QRS: 67 T: 60 INTERPRETIVE STATEMENTS: Sinus tachycardia with short IA Voltage criteria for left ventricular hypertrophy Nonspecific ST abnormality Abnormal ECG Compared to ECG 12/10/2024 13:45:08 ST (T wave) deviation now present Sinus rhythm no longer present Electronically Signed On 12-19-24 12:09:10 CDT by Johnathan Cummings
== END 2024-12-18 17:14 | disposition short-term general hospital (02) ==
LOC: ER 13:40
DX: C34.11 Malignant neoplasm of upper lobe, right bronchus or lung (principal); J91.0 Malignant pleural effusion; R65.20 Severe sepsis without septic shock; D64.9 Anemia, unspecified; D72.829 Elevated white blood cell count, unspecified
CPT/HCPCS: 96365; 96361; 96368; 93005; 87040 ×2; 85025; 80048; 36415; 83735; 85610; 80076; 83605; 84484; 83690; 83880; 71045; 99285; J7614; J2543; J7644; J7040; J7030